=== PATIENT | male | born 1965 | race African-American/Black ===

== ENCOUNTER 2023-02-23 07:36 | Emergency (ER) | payer OTHER, SELFPAY ==
--- NOTE | ~2023-02-23 | US_ITS ---
EXAMINATION: US ABDOMEN LIMITED CLINICAL INFORMATION: Question cholecystitis. Right upper corner and pain. COMPARISON: CT abdomen and pelvis 05/28/2019. TECHNIQUE: Real-time imaging of the gallbladder. FINDINGS: Cholelithiasis. No sonographic evidence of acute cholecystitis. No gallbladder wall thickening or pericholecystic fluid. Negative sonographic Gaviria sign. The common bile duct is normal in caliber at 0.3 cm. US/US abdomen limited IMPRESSION: Cholelithiasis without evidence of acute cholecystitis.
--- NOTE | ~2023-02-23 | XR_ITS ---
EXAMINATION: XR CHEST CLINICAL INFORMATION: Cough COMPARISON: 06/27/2019, CT 06/28/2019 TECHNIQUE: Frontal view of the chest was obtained. FINDINGS: No acute finding. Pleural thickening at the lung bases bilaterally is likely fatty change when previous CT is reviewed. There is no infiltrate. There is no effusion. The hilar regions do not appear pathologically enlarged The cardiac silhouette is within normal limits. XR/XR chest 1V IMPRESSION: No acute finding.
[2023-02-23 07:45] VITALS: BP 175/108; PULSE 98; RESP 19; TEMP 37.2; O2SAT 98; BMI 28.3
--- NOTE | 2023-02-23 08:12 | ED.GENADULT ---
HPI - General Adult General Chief complaint: General Medical Stated complaint: Diff breathing/Cough Time Seen by Provider: 02/23/23 08:22 Source: patient Mode of arrival: ambulatory Limitations: no limitations History of Present Illness HPI narrative: Patient presented with cough or congestion he has history of COPD, symptoms have been ongoing for couple of days denies any fever vomiting. He is also complaining of some abdominal pain is scheduled to have a cholecystectomy on Friday. Also he states that he is having some abdominal pain. Onset (ago): day(s) (2) Radiation: non-radiation Severity: moderate Relieving factors: none Exacerbating factors: none Related Data Previous Rx's Medication Instructions Recorded ondansetron HCl 4 mg tablet 4 mg PO Q8H PRN nausea 4 days #14 02/23/23 tabs oxycodone 5 mg capsule 5 mg PO Q8H PRN pain #12 caps 02/23/23 Allergies Allergy/AdvReac Type Severity Reaction Status Date / Time No Known Allergies Allergy Verified 02/23/23 07:45 [No Known Allergies*] Review of Systems Constitutional: Constitutional: Reports no additional constitutional complaints ENT: Reports system reviewed and no additional complaints, except as documented Cardiovascular: Cardiovascular: Reports no additional cardiovascular complaints [facility] Past Medical History Attestation statement: The following information was validated with the patient. [facility] Narrative: COPD, gallstones Social History Social History Smoked in Last 30 Days: No Use of substances other than those prescribed or required for medical reasons: No Advance Directives: No Advance Directives Information Provided: Yes Physical Exam ED Vital Signs: Vital Signs - 24 hr 02/23/23 07:45 02/23/23 08:26 02/23/23 11:17 Temperature 99 F 98.9 F Pulse Rate 98 89 83 Respiratory Rate 19 18 16 Blood Pressure 175/108 H 136/91 H 159/97 H Pulse Oximetry 98 96 97 Oxygen Delivery Method Room Air Room Air Room Air BMI result Body Mass Index 28.3 Const General: cooperative Nutritional Appearance: average body habitus Orientation/consciousness: patient oriented x3 Limitations: no limitations HENMT Head: Yes normal to inspection Ears: hearing grossly normal bilaterally General nose exam: Normal external nose present Face and sinus: Yes normal facial exam Mouth: Normal oral and palatal mucosa present Throat: Yes posterior oropharynx normal Neck Neck: Yes normal visual inspection and Yes full ROM Resp Effort & Inspection: normal respiratory effort and able to speak in complete sentences Auscultation: rhonchi Cardio Jugular venous distension: no JVD Rate: regular rate Rhythm: regular rhythm GI Inspection: Yes normal to inspection Palpation (GI): Soft to palpation, not firm and nontender Skin General skin exam: no rashes or lesions noted and elasticity normal Lesions: no lesions Neuro General: patient oriented x3 Medications Administered Discontinued Medications Generic Name Dose Route Start Last Admin Trade Name Piyush PRN Reason Stop Dose Admin Oxycodone HCl 5 mg 02/23/23 08:16 02/23/23 08:35 Oxycodone Hcl Immed Release 5 Mg Tablet PO 02/23/23 08:17 5 mg ONCE ONE Administration Oxycodone HCl 5 mg 02/23/23 08:22 02/23/23 08:35 Oxycodone Hcl Immed Release 5 Mg Tablet PO 02/23/23 08:23 Not Given ONCE ONE Medical Decision Making Medical Decision Making [facility] Narrative: Patient presented with cough congestion will obtain COVID test chest x-ray labs and reassessed. He also has history of gallstones and scheduled for cholecystectomy on Friday. Will check LFT lipase white As 12:42 is feeling much better, ultrasound showed gallstone but no cholecystitis, labs are within normal limits chest x-ray is normal at this point I think can be safely discharged home. Differential Diagnosis Differential Diagnoses: The differential diagnosis associated with the presentation includes Pneumonia/COPD exacerbation Admission/Observation Consideration of admission/observation: Escalation of care including admission/observation considered Lab Data [facility] Lab Attestation statement: I reviewed the patient's lab results. 02/23/23 08:33 02/23/23 08:33 Labs: Lab Results 02/23/23 Range/Units 08:33 WBC 10.2 (4.8-10.8) X10*3/uL RBC 4.27 L (4.60-5.80) X10*6/uL Hgb 13.6 L (14.0-18.0) g/dl Hct 41.3 L (42.0-52.0) % MCV 96.7 (80.0-98.0) fL MCH 31.9 (27.0-33.0) pg MCHC 32.9 (31.0-36.0) g/dl RDW 13.3 (11.0-16.0) % Plt Count 270 (160-400) X10*3/uL MPV 8.5 L (9.4-12.4) fL Immature Gran % (Auto) 0.3 (0.0-0.4) % Neut % (Auto) 74.7 H (45-73) % Lymph % (Auto) 15.2 L (20-40) % Angelina % (Auto) 9.3 (2-11) % Eos % (Auto) 0.2 (0-4) % Baso % (Auto) 0.3 (0-2) % Lymph # (Auto) 1.6 (1.2-4.9) X10*3/uL Angelina # (Auto) 1.0 (0.1-1.2) X10*3/uL Eos # (Auto) 0.0 (0.0-0.4) X10*3/uL Baso # (Auto) 0.0 (0.0-0.2) X10*3/uL Abs Immat Gran (auto) 0.03 (0.00-0.03) X10*3/uL Absolute Neuts (auto) 7.6 (2.0-8.3) x10*3/uL Absolute Nucleated RBC 0.000 (0.0-0.012) X10*3/uL Nucleated RBC % (auto) 0.0 (0.0-0.2) /100WBC Sodium 142 (135-145) mmol/L Potassium 3.7 (3.3-5.1) mmol/L Chloride 108 (96-108) mmol/L Carbon Dioxide 23 (22-29) mmol/L Anion Gap 15 (12-20) BUN 13 (9-16) mg/dL Creatinine 1.15 (0.5-1.4) mg/dL Estim Creat Clear Calc 66.2 Estimated GFR > 60 Random Glucose 87 (60-115) mg/dL Calcium 10.3 H (8.4-10.2) mg/dL Total Bilirubin 0.4 (0.0-1.0) mg/dL AST 21 (5-37) U/L ALT 21 (0-40) U/L Alkaline Phosphatase 78 (39-117) U/L Total Protein 7.5 (6.5-8.0) g/dL Albumin 4.2 (3.5-5.0) g/dL Lipase 16 (8-78) U/L Influenza Type A (PCR) NEGATIVE (Negative) Influenza Type B (PCR) NEGATIVE (Negative) RSV RNA Qual (PCR) NEGATIVE (Negative) SARS-CoV-2 RNA (RT-PCR) NEGATIVE (Negative) Independent Interpretation I performed an independent interpretation of an: Ultrasound Interpretation: bormal cxr AND NORMAL US Radiology Impression Discussion of test interpretation with radiology: I have reviewed the radiologist's reading. Radiologist Impression: Question cholecystitis. Right upper corner and pain. COMPARISON: CT abdomen and pelvis 05/28/2019. TECHNIQUE: Real-time imaging of the gallbladder. FINDINGS: Cholelithiasis. No sonographic evidence of acute cholecystitis. No gallbladder wall thickening or pericholecystic fluid. Negative sonographic Gaviria sign. The common bile duct is normal in caliber at 0.3 cm. US/US abdomen limited IMPRESSION: Cholelithiasis without evidence of acute cholecystitis. Dictated By: David Morrison MD Signed By: <Electronically signed by David Morrison MD in OV> 02/23/23 1224 DD/ 1102 Discharge Plan Discharge Clinical Impression: Gallstone, URI (upper respiratory infection) Patient Disposition: Home, Self-Care Instructions: Gallstones (ED), Upper Respiratory Infection (DC) Prescriptions: New oxycodone 5 mg capsule 5 mg PO Q8H PRN (Reason: pain) Qty: 12 0RF Rx Instructions: Partial Fill upon patient request. ondansetron HCl 4 mg tablet 4 mg PO Q8H PRN (Reason: nausea) 4 Days Qty: 14 0RF Referrals: Florida Murcia MD [Primary Care Provider] - 2 days
--- OUTSIDE RECORDS SUMMARY | 2023-02-23 08:19 | XMS_ITS | Continuity of Care Document ---
Author Name Unknown Organization [facility] Inpatient Psychiatry Address [address] [place] [address]- Care Team Providers Care Manager Msw Name Role Phone Justine CAIN, Shannon Primary Care Physician Encounter [facility] Date(s): 12/03/21 - 12/06/21 [facility] Inpatient Psychiatry [address] [place] [address]- Discharge Disposition: A-D/C Home Attending Physician: Adela LEE, Pacheco Bejarano Admitting Physician: Pacheco Chapman MD Referring Physician: Not on Staff, Referring MD Allergies, Adverse Reactions, Alerts No Known Allergies Immunizations Not Given Vaccine Date Status Refusal Reason pneumococcal 23-valent vaccine 05/08/18 Not Given Patient Refuses Medications albuterol 90 mcg/inh inhalation powder 2 puffs, Inhalation, Every 6 hours, PRN as needed, # 1 each, 0 Refills, Maintenance, 09/17/21 15:47:00 EDT, Powder, Partial fill upon patient request if the prescription is for a schedule II opioid drug. Start Date: 09/17/21 Status: Ordered Depakote ER 250 mg oral tablet, extended release 2 tablet = 500 mg, By Mouth, Daily at bedtime, # 60 tablet, 0 Refills, Maintenance, 09/17/21 15:40:00 EDT, ER Tablet, Partial fill upon patient request if the prescription is for a schedule II opioiddrug. Start Date: 09/17/21 Status: Ordered ZyPREXA 7.5 mg oral tablet 15 mg, 2, tablet, By Mouth, Daily at bedtime, # 60 tablet, Refills 0, Tot. Refills 0, Maintenance, 09/25/21 11:08:00 EDT, Route to Pharmacy Electronically, [facility]/pharmacy #[id number], Partial fill upon patient request if the prescription is for a schedule II... Start Date: 09/25/21 Status: Ordered Vital Signs Most recent to oldest [Reference Range]: 1 2 3 Height 165 cm (12/06/21 9:01 AM) 165 cm (12/05/21 7:53 PM) 165 cm (12/05/21 9:01 AM) Weight 77.27 kg (12/03/21 5:22 PM) 77.27 kg (12/03/21 9:28 AM) 77.27 kg (12/02/21 6:17 PM) Oxygen Saturation [94-100 %] 98 % (12/06/21 9:01 AM) 100 % (12/05/21 7:53 PM) 98 % (12/05/21 9: AM) Pulse Rate [55-90 bpm] 74 bpm (12/06/21 9:01 AM) 80 bpm (12/05/21 7:53 PM) 86 bpm (12/05/21 9:01 AM) Body Mass Index [18.5-24.99] 28.38 *H* (12/03/21:22 PM) 28.38 *H* (12/03/21 9:28 AM) 28.38 *H* (12/02/21 6:17 PM) Blood Pressure [90-138/55-84 mm Hg] 145/90mm Hg *H* (12/06/21 9:01 AM) 140/81mm Hg *H* (12/05/21 7:53 PM) 122/73mm Hg (12/05/21 9:01 AM) Respiratory Rate [16-30 br/min] 16 br/min (12/06/21 9:01 AM) 16 br/min (12/06/21 9:01 AM) 17 br/min (12/05/21 7:53 PM) Temperature [96.8-100.4 DegF] 97 DegF (12/06/21 9:01 AM) 98.1 DegF (12/05/21 7:53 PM) 97 DegF (12/05/21 9:01 AM) Mode of Delivery (Oxygen) Room air (12/06/21 9:01 AM) Room air (12/05/21 7:53 PM) Room air (12/05/21 9:01 AM) Blood pressure sites Arm, left (12/06/21 9:01 AM) Arm, right (12/05/21 7:53 PM) Arm, left (12/05/21 9:01 AM) Temperature Route Temporal (12/06/21 9:01 AM) Temporal (12/05/21 7:53 PM) Temporal (12/05/21 9:01 AM) Dry Weight 77.27 kg (12/03/21 5:22 PM) 77 kg (12/03/21 9:28 AM) 77 kg (12/02/21 6:17 PM) Social History Social History Type Response Smoking Status Never (less than 100 in lifetime);Former smoker, quit more than 30 days ago; Other: 5 cigs daily for 15 years.; entered on: 02/04/19 Sex Care Team Personnel Name: Shannon Fletcher NP Address: [address] [place] [id number]
--- OUTSIDE RECORDS SUMMARY | 2023-02-23 08:19 | XMS_ITS | Continuity of Care Document ---
Author Name Unknown Organization [facility] Inpatient Psychiatry Address [address] [place] [address]- Care Team Providers Care Telecom Engineer Name Role Phone Justine CAIN, Shannon Primary Care Physician [phone] Encounter [facility] Date(s): 09/17/21 - 09/25/21 [facility] Inpatient Psychiatry [address] [place] [address]- Discharge Disposition: A-D/C Home Attending Physician: Manuel Preciado MD Admitting Physician: Manuel Preciado MD Referring Physician: Not on Staff, Referring [...] II opioiddrug. Start Date: 09/17/21 Status: Ordered hydrOXYzine pamoate 50 mg oral capsule = 50 mg, By Mouth, 3 times a day, PRN Anxiety, # 90 capsule, 0 Refills, Acute 10/27/21 11:08:00 EDT, 09/25/21 11:07:00 EDT, Capsule, [facility]/pharmacy #[id number], Partial fill upon patient request if the prescription is for a schedule II opioid drug., 162, cm,... Start Date: 09/25/21 Stop Date: 10/27/21 Status: Ordered ZyPREXA 7.5 mg oral tablet 15 mg, 2, tablet, By Mouth, Daily at bedtime, # 60 tablet, Refills 0, Tot. Refills 0, Maintenance, 09/25/21 11:08:00 EDT, Route to Pharmacy Electronically, [facility]/pharmacy #[id number], Partial fill upon patient request if the prescription is for a schedule II... Start Date: 09/25/21 Status: Ordered Problem List Condition Effective Dates Status Health Status Inform ant Obese class I(Confirmed) Active Results Radiology Reports * Exam Date Time Procedure Performing Provider Status 09/18/21 2:10 PM Chest 2 Views Frontal and Lat Panda Wheeler (Verified) Notes: (Chest 2 Views Frontal and Lat) Reason For Exam: Cough RESULT: Chest 2 Views Frontal and Lat Chest 2 Views Frontal and Lat Reason: Cough; Clinical Question(s): Pneumonia COMPARISON: 06/21/2019 FINDINGS: LINES AND TUBES: None. LUNGS AND PLEURA: Clear lungs. Normal pulmonary vascularity. No pleural effusion. No pneumothorax. HEART, MEDIASTINUM AND VIGNESH: Heart is normal in size. Normal upper mediastinal and hilar contour. BONES AND SOFT TISSUES: No acute abnormality. IMPRESSION: No acute abnormality. WSN: [id number] Ordering Physician: Nba Mandujano Dictated By: Julio Patel MD Dictated Date/Time: 09/18/21 4:19 pm Reviewed By: Julio Patel MD Signed By: Julio Patel MD Signed Date/Time: 09/18/21 4:19 pm Transcribed By: DIDI Transcribed Date/Time: 09/18/21 4:18 pm Vital Signs Most recent to oldest [Reference Range]: 1 2 3 Height 162 cm (09/24/21 3:57 PM) 162 cm (09/24/21 11:58 AM) 162 cm (09/23/21 10:34 PM) Weight 82.3 kg (09/17/21 3:11 PM) Oxygen Saturation [94-100 %] 100 % (09/24/21 3:57 PM) 99 % (09/24/21 11:58 AM) 98 % (09/23/21 10:34 PM) Pulse Rate [55-90 bpm] 101 bpm *H* (09/24/21 3:57 PM) 82 bpm (09/24/21 11:58 AM) 72 bpm (09/23/21 10:34 PM) Body Mass Index [18.5-24.99] 31.36 *>HHI* (09/17/21 3:11 PM) Blood Pressure [90-138/55-84 mm Hg] 133/73mm Hg (09/24/21 3:57 PM) 119/83mm Hg (09/24/21 11:58 AM) 134/85mm Hg (09/23/21 10:34 PM) Respiratory Rate [16-30 br/min] 18 br/min (09/24/21 7:16 PM) 18 br/min (09/24/21 3:57 PM) 16 br/min (09/24/21 11:58 AM) Temperature [96.8-100.4 DegF] 96.4 DegF *L* (09/24/21 3:57 PM) 98.1 DegF (09/24/21 11:58 AM) 97.3 DegF (09/23/21 10:34 PM) Mode of Delivery (Oxygen) Room air (09/24/21 3:57 PM) Room air (09/24/21 11:58 AM) Room air (09/23/21 11:15 AM) Blood pressure sites Arm, left (09/24/21 3:57 PM) Arm, left (09/24/21 11:58 AM) Leg, left (09/23/21 11:15 AM) Temperature Route Temporal (09/24/21 3:57 PM) Temporal (09/24/21 11:58 AM) Tympanic (09/23/21 10:34 PM) Dry Weight 82.3 kg (09/17/21 3:11 PM) Weight Obtained Via Standing scale (09/17/21 3:11 PM) Dry Weight Obtained Via Standing scale (09/17/21 3:11 PM) Social History Social History Type Response Smoking Status Never (less than 100 in lifetime);Former smoker, quit more than 30 days ago; Other: 5 cigs daily for 15 years.; entered on: 02/04/19 Sex
--- OUTSIDE RECORDS SUMMARY | 2023-02-23 08:19 | XMS_ITS | Continuity of Care Document ---
Author Name Unknown Organization [facility] oenterology Address [address] [place] [address]- Care Team Providers Care Manager Game Name Role Phone Divina LEE, Florida Bejarano Primary Care Physician Encounter [facility] Date(s): 01/03/23 - 02/13/23 [facility] Gastroenterology [address] [place] [id number]- Attending Physician: Rajan CAIN, Charito Astorga Admitting Physician: Rajan CAIN, Charito Astorga Referring Physician: Justine CAIN, Shannon Allergies, Adverse Reactions, Alerts No Known Allergies Medications albuterol 90 mcg/inh inhalation powder 2 [...] Route to Pharmacy Electronically, [facility]/pharmacy #[id number], Partial fill upon patient request if the prescription is for a schedule II... Start Date: 09/25/21 Status: Ordered Social History Social History Type Response Smoking Status Never (less than 100 in lifetime);Former smoker, quit more than 30 days ago; Other: 5 cigs daily for 15 years.; entered on: 02/04/19 Sex Patient Care team information Care Team Personnel Name: Florida Murcia MD Position: Reference Physician Member Role: PCP Address: Address: [address] [place] [address] Name: Nadira Farmer RN Position: S RN Member Role: Primary Care Nurse Name: Pawan Patterson RN Position: S RN Member Role: Primary Care Nurse Care Team Related Persons Name: ALEM BRICE Name: GILBERT MAST Address: home [address] [address] Name: MILLICENT DURANT Name: JHON HATFIELD Address: home [address] [place] [address]
--- OUTSIDE RECORDS SUMMARY | 2023-02-23 08:19 | XMS_ITS | Continuity of Care Document ---
Author Name Unknown Organization [facility] oenterology Address [address] [place] [address]- Care Team Providers Care Scroll Shear Operator Name Role Phone Rich LEE, Bill Primary Care Physician [phone] Encounter [facility] Date(s): 06/30/20 - 07/30/20 [facility] Gastroenterology [address] [place] [address]- Allergies, Adverse Reactions, Alerts Substance Reaction Severity Status NKA Active Immunizations Not Given Vaccine Date Status Refusal Reason pneumococcal 23-valent vaccine 05/08/18 Not Given Patient Refuses Medications albuterol CFC free 90 mcg/inh inhalation aerosol INHALE 2 PUFFS BY MOUTH EVERY 6 HOURS NEEDED FOR SHORTNESS OF BREATH Start Date: 06/24/19 Status: Ordered Breo Ellipta 100 mcg-25 mcg/inh inhalation powder 1 puffs, Inhalation, Daily, # 30 each, 0 Refills, Maintenance, 06/02/20 9:41:00 EST, Powder, Partial fill upon patient request if the prescription is for a schedule II opioid drug. Start Date: 06/02/20 Status: Ordered Clenpiq oral solution See Instructions, Drink 160 mL the night before colonoscopy and then take the other 160 mL 6 hours before colonoscopy, # 1 each, 0 Refills, Maintenance, 06/30/20 10:55:00 EDT, [facility]/pharmacy #[id number], Partial fill upon patient request if the prescription i... Start Date: 06/30/20 Status: Ordered DermaCerin topical cream APPLY TO AFFECTED AREA TWICE A DAY Start Date: 06/24/19 Status: Ordered divalproex sodium 500 mg oral tablet, extended release 1 tablet = 500 mg, By Mouth, Daily, # 30 tablet, 0 Refills, Maintenance, 06/02/20 9:42:00 EST, ER Tablet, Partial fill upon patient request if the prescription is for a schedule II opioid drug. Start Date: 06/02/20 Status: Ordered gabapentin 300 mg oral capsule TAKE 1 CAPSULE BY MOUTH TWICE A DAY NEEDED FOR ANXIETY/RESTLESSNESS Start Date: 06/24/19 Status: Ordered lamotrigine 100 mg oral tablet 100 mg, 1, tablet, By Mouth, Daily, Refills 0, Maintenance, 06/02/20 9:42:00 EST, Partial fill uponpatient request if the prescription is for a schedule II opioid drug. Start Date: 06/02/20 Status: Ordered lamotrigine 25 mg oral tablet 25 mg, 1, tablet, By Mouth, Daily, # 30 tablet, Refills 0, Maintenance, 06/02/20 9:42:00 EST, Partial fill upon patient request if the prescription is for a schedule II opioid drug. Start Date: 06/02/20 Status: Ordered Melatonin Daily at bedtime, 0 Refills, Maintenance, 06/02/20 9:42:00 EST, Partial fill upon patient request if the prescription is for a schedule II opioid drug. Start Date: 06/02/20 Status: Ordered olanzapine 5 mg oral tablet 5 mg, 1, tablet, By Mouth, Daily, # 30 tablet, Refills 0, Maintenance, 06/02/20 9:43:00 EST, Partial fill upon patient request if the prescription is for a schedule II opioid drug. Start Date: 06/02/20 Status: Ordered omeprazole 20 mg oral enteric coated capsule 1 capsule = 20 mg, By Mouth, Daily, # 30 capsule, 0 Refills, Maintenance, 06/02/20 9:43:00 EST, EC Capsule, Partial fill upon patient request if the prescription is for a schedule II opioid drug. Start Date: 06/02/20 Status: Ordered QUEtiapine 200 mg oral tablet 200 mg, 1, tablet, By Mouth, 3 times a day, Refills 0, Maintenance, 06/02/20 9:44:00 EST, Partial fill upon patient request if the prescription is for a schedule II opioid drug. Start Date: 06/02/20 Status: Ordered Social History Social History Type Response Smoking Status Never (less than 100 in lifetime);Former smoker, quit more than 30 days ago; Other: 5 cigs daily for 15 years.; entered on: 02/04/19 Sex
--- OUTSIDE RECORDS SUMMARY | 2023-02-23 08:19 | XMS_ITS | Continuity of Care Document ---
Author Name Unknown Organization [facility] Address [address] [place] [address]- Care Team Providers Care File Clerk Name Role Phone Lakhwinder Acosta DO Primary Care Physician En[place] [facility] Date(s): 04/15/19 - 04/25/19 [facility] [address] [place] [address]- [facility] Attending Physician: Savi Bowling Admitting Physician: Savi Bowling Referring Physician: Savi Bowling Allergies, Adverse Reactions, Alerts Substance Reaction Severity Status NKA Active Immunizations Not Given Vaccine Date Status Refusal Reason pneumococcal 23-valent vaccine 05/08/18 Not Given Patient Refuses Medications albuterol CFC free 90 mcg/inh inhalation aerosol 2, puffs, Inhalation, Every 6 hours, PRN, # 9 Gm, Refills 0, Maintenance, 05/07/18 14:42:49 EST, Aerosol, Compound Start Date: 05/07/18 Status: Ordered azithromycin 250 mg oral tablet 1 pack/packet, By Mouth, Once, # 6 tablet, 0 Refills, Soft Stop, 02/04/19 15:09:06 EST, Tablet Start Date: 02/04/19 Status: Ordered HydrOXYzine = 50 mg, By Mouth, 3 times a day, PRN as needed for anxiety, 0 Refills, Maintenance, 05/07/18 14:41:31 EST Start Date: 05/07/18 Status: Ordered melatonin 3 mg oral tablet 1 tablet = 3 mg, By Mouth, Daily at bedtime, 1-2 tablets at HS, 0 Refills, Maintenance, 05/07/18 14:41:57 EST Start Date: 05/07/18 Status: Ordered mirtazapine 7.5 mg oral tablet 1 tablet = 7.5 mg, By Mouth, Daily at bedtime, 0 Refills, Maintenance, 05/07/18 14:41:47 EST Start Date: 05/07/18 Status: Ordered Mucinex 600 mg oral tablet, extended release 1 tablet = 600 mg, By Mouth, Every 12 hours, for 30 days, # 60 tablet, 3 Refills, Acute 06/10/19 10:38:17 EDT, 02/10/19 10:38:17 EST, ER Tablet Start Date: 02/10/19 Stop Date: 06/10/19 Status: Ordered olanzapine 10 mg oral tablet 10 mg, 1, tablet, By Mouth, Daily at bedtime, Refills 0, Maintenance, 05/07/18 14:43:04 EST Start Date: 05/07/18 Status: Ordered omeprazole 20 mg oral delayed release tablet 1 tablet = 20 mg, By Mouth, Daily, 0 Refills, Maintenance, 05/07/18 14:43:25 EST Start Date: 05/07/18 Status: Ordered Social History Social History Type Response Smoking Status Never (less than 100 in lifetime);Former smoker, quit more than 30 days ago; Other: 5 cigs daily for 15 years.; entered on: 02/04/19 Sex
--- OUTSIDE RECORDS SUMMARY | 2023-02-23 08:19 | XMS_ITS | Continuity of Care Document ---
Author Name Unknown Organization [facility] Address [address] [place] [address]- Care Team Providers Care Aerial Photographer Name Role Phone Justine CAIN, Shannon Primary Care Physician Encounter [facility] Date(s): 08/09/20 - 10/08/[address] [address]- Attending Physician: Pilar Crespo MD Admitting Physician: Pilar Crespo MD Allergies, Adverse Reactions, Alerts Substance Reaction Severity [...] colonoscopy, # 1 each, 0 Refills, Maintenance, 09/04/20 11:24:00 EDT, [facility]/pharmacy #[id number], Partial fill upon patient request if the prescription i... Start Date: 09/04/20 Status: Ordered DermaCerin topical cream APPLY TO [...]
--- OUTSIDE RECORDS SUMMARY | 2023-02-23 08:19 | XMS_ITS | Continuity of Care Document ---
Author Name Unknown Organization [facility] Inpatient Psychiatry Address [address] [place] [address]- Care Team Providers Care Cnc Lathe Machinist Name Role Phone Justine CAIN, Shannon Primary Care Physician Encounter [facility] Date(s): 12/01/20 - 12/04/20 [facility] Inpatient Psychiatry [address] [place] [address]- Discharge Disposition: A-D/C Home Attending Physician: Manuel Preciado MD Admitting Physician: Caron LEE, Dionte Pagan Referring Physician: Not on Staff, Referring MD Allergies, Adverse Reactions, Alerts Substance Reaction Severity Status NKA Active Immunizations Not Given Vaccine Date Status Refusal Reason pneumococcal 23-valent vaccine 05/08/18 Not Given Patient Refuses Medications Ammonium Lactate 12% Topical 1 applicator, Topically, 2 times a day, 0 Refills, Maintenance, Cream Start Date: 12/04/20 Status: Ordered Breo Ellipta 100 mcg-25 mcg/inh inhalation powder 1 puffs, Inhalation, Daily, # 30 each, 0 Refills, Maintenance, 06/02/20 9:41:00 EST, Powder, Partial fill upon patient request if the prescription is for a schedule II opioid drug. Start Date: 06/02/20 Status: Ordered gabapentin 250 mg/5 mL oral solution 12 mL = 600 mg, By Mouth, 2 times a day, 0 Refills, Maintenance, 12/04/20 12:12:00 EDT, Liquid, Partial fill upon patient request if the prescription is for a schedule II opioid drug. Start Date: 12/04/20 Status: Ordered Gabapentin 50 mg/ml Liquid 600 mg, Liquid, By Mouth, 12/03/20 21:00:00 EDT Start Date: 12/03/20 Stop Date: 12/03/20 Status: Completed Gabapentin 50 mg/ml Liquid 600 mg, Liquid, By Mouth, 12/04/20 9:00:00 EDT Start Date: 12/04/20 Stop Date: 12/04/20 Status: Completed mirtazapine 15 mg oral tablet 1 tablet = 15 mg, By Mouth, Daily at bedtime, 0 Refills, Maintenance, 12/04/20 11:09:00 EDT, Tablet, Partial fill upon patient request if the prescription is for a schedule II opioid drug. Start Date: 12/04/20 Status: Ordered QUEtiapine 25 mg oral tablet 50 mg, 2, tablet, By Mouth, Daily at bedtime, Refills 0, Maintenance, 12/04/20 12:12:00 EDT, Partial fill upon patient request if the prescription is for a schedule II opioid drug. Start Date: 12/04/20 Status: Ordered SEROquel 100 mg oral tablet 100 mg, 1, tablet, By Mouth, 3 times a day, PRN, Refills 0, Maintenance, Other, 12/04/20 12:12:00 EDT, Partial fill upon patient request if the prescription is for a schedule II opioid drug. Start Date: 12/04/20 Status: Ordered Vital Signs Most recent to oldest [Reference Range]: 1 2 3 Height 165 cm (12/04/20 9:25 AM) 165 cm (12/03/20 5:39 PM) 165 cm (12/03/20 9:10 AM) Weight 81.3 kg (12/01/20 9:59 PM) Oxygen Saturation [94-100 %] 98 % (12/04/20 9:25 AM) 97 % (12/03/20 5:39 PM) 99 % (12/03/20 9:10 AM) Pulse Rate [55-90 bpm] 96 bpm *H* (12/04/20 9:25 AM) 103 bpm *H* (12/03/20 5:39 PM) 88 bpm (12/03/20 9:10 AM) Body Mass Index [18.5-24.99] 29.86 *H* (12/01/20 9:59 PM) Blood Pressure [90-138/55-84 mm Hg] 115/67mm Hg (12/04/20 9:25 AM) 112/86mm Hg (12/03/20 5:39 PM) 137/82mm Hg (12/03/20 9:10 AM) Respiratory Rate [16-30 br/min] 18 br/min (12/04/20 9:30 AM) 18 br/min (12/04/20 9:25 AM) 16 br/min (12/03/20 9:01 PM) Temperature [96.8-100.4 DegF] 96.9 DegF (12/04/20 9:25 AM) 97.1 DegF (12/03/20 5:39 PM) 97.3 DegF (12/03/20 9:10 AM) Mode of Delivery (Oxygen) Room air (12/04/20 9:25 AM) Room air (12/03/20 5:39 PM) Room air (12/03/20 9:10 AM) Blood pressure sites Arm, left (12/04/20 9:25 AM) Arm, left (12/03/20 5:39 PM) Arm, left (12/03/20 9:10 AM) Temperature Route Temporal (12/04/20 9:25 AM) Tympanic (12/03/20 5:39 PM) Temporal (12/03/20 9:10 AM) Dry Weight 81.3 kg (12/01/20 9:59 PM) Sensory deficits None (12/01/20 9:59 PM) Social History Social History Type Response Smoking Status Never (less than 100 in lifetime);Former smoker, quit more than 30 days ago; Other: 5 cigs daily for 15 years.; entered on: 02/04/19 Sex
--- OUTSIDE RECORDS SUMMARY | 2023-02-23 08:19 | XMS_ITS | Continuity of Care Document ---
Author Name Unknown Organization [facility] Address [address] [place] [address]- Care Team Providers Care Scientific Technical Writer Name Role Phone Bill Villanueva MD Primary Care Physician Encounter [facility] Date(s): 06/02/20 - 09/03/[address] [address]- Attending Physician: Pilar Crespo MD Admitting Physician: [...] each, 0 Refills, Maintenance, 06/30/20 10:55:00 EDT, [facility]/pharmacy #[id number], Partial fill upon patient request [...]
--- OUTSIDE RECORDS SUMMARY | 2023-02-23 08:19 | XMS_ITS | Continuity of Care Document ---
Author Name Unknown Organization [facility] oenterology Address [address] [place] [address]- Care Team Providers Care Financial Sales Associate Name Role Phone Divina LEE, [place] Bejarano Primary Care Physician Encounter [facility] Date(s): 01/14/23 - 02/13/23 [facility] Gastroenterology [address] [place] [address]- Attending Physician: Savi Bowling Admitting Physician: Savi Bowling Referring Physician: Savi Bowling Referring Physician: Micaela Reynoso Allergies, Adverse Reactions, Alerts No Known Allergies [...] 09/25/21 11:08:00 EDT, Route to Pharmacy Electronically, [facility]/pharmacy #[id number], Partial fill upon patient request if the [...] Reference Physician Member Role: PCP Address: Address: [address] [place] [id number] Name: Nadira Farmer RN Position: S RN Member Role: Primary Care Nurse Name: Pawan Patterson RN Position: S RN Member Role: Primary Care Nurse Care Team Related Persons Name: ALEM BRICE Name: GILBERT MAST Address: home [address] [address] Name: MILLICENT DURANT Name: JHON HATFIELD Address: home [address] [place] [address]
--- OUTSIDE RECORDS SUMMARY | 2023-02-23 08:20 | XMS_ITS | Continuity of Care Document ---
Author Name Unknown Organization [facility] oenterology Address [address] [place] [address]- Care Team Providers Care Help Desk Rep Name Role Phone Shannon Fletcher NP Primary Care Physician [phone] Encounter [facility] Date(s): 01/02/23 - 02/01/23 [facility] Gastroenterology [address] [place] [address]- Allergies, Adverse Reactions, Alerts No Known Allergies [...] 09/25/21 11:08:00 EDT, Route to Pharmacy Electronically, [facility]/pharmacy #[id number], Partial fill upon patient request if the prescription is for a schedule II... Start Date: 09/25/21 Status: Ordered Social History Social History Type Response Smoking Status Never (less than 100 in lifetime);Former smoker, quit more than 30 days ago; Other: 5 cigs daily for 15 years.; entered on: 02/04/19 Sex Patient Care team information Care Team Personnel Name: Shannon Flethcer NP Position: Reference Physician Member Role: PCP Address: Address: [address] [place] [address]- Name: Nadira Farmer RN Position: S RN Member Role: Primary Care Nurse Name: Pawan Patterson RN Position: S RN Member Role: Primary Care Nurse Care Team Related Persons Name: ALEM BRICE Name: GILBERT MAST Address: home [address] [address] Name: MILLICENT DURANT Name: JHON HATFIELD Address: home [address] [place] [address]
--- OUTSIDE RECORDS SUMMARY | 2023-02-23 08:20 | XMS_ITS | Continuity of Care Document ---
Author Name Unknown Organization [facility] oenterology Address [address] [place] [address]- Care Team Providers Care Project Construction Assistant Manager Name Role Phone Rich LEE, Bill Primary Care Physician Encounter [facility] Date(s): 06/02/20 - 07/02/20 [facility] Gastroenterology [address] [place] [address]- Attending Physician: Savi Bowling Admitting Physician: Savi Bowling Referring Physician: AdmtrSavi Allergies, Adverse Reactions, Alerts Substance Reaction Severity [...] each, 0 Refills, Maintenance, 06/30/20 10:55:00 EDT, [facility]/pharmacy #[id number], Partial fill upon patient request if [...]
--- OUTSIDE RECORDS SUMMARY | 2023-02-23 08:20 | XMS_ITS | Continuity of Care Document ---
Author Name Unknown Organization [facility] oenterology Address [address] [place] [address]- Care Team Providers Care Paint Line Operator Name Role Phone Bill Villanueva MD Primary Care Physician [phone] Encounter [facility] Date(s): 06/02/20 - 06/09/20 [facility] Gastroenterology [address] [place] [address]- Attending Physician: Rajan CAIN, Charito Astorga Admitting Physician: Charito Tolentino NP Referring Physician: Bill Villanueva MD Allergies, Adverse Reactions, Alerts Substance Reaction [...] opioid drug. Start Date: 06/02/20 Status: Ordered DermaCerin topical cream APPLY TO [...]
--- OUTSIDE RECORDS SUMMARY | 2023-02-23 08:20 | XMS_ITS | Continuity of Care Document ---
Author Name Unknown Organization [facility] Address [address] [place] [address]- Care Team Providers Care Orthodontic Treatment Coordinator Name Role Phone Lakhwinder Acosta DO Primary Care Physician [phone] Encounter [facility] Date(s): 02/10/19 - 05/15/19 [facility] [address] [place] [address]- [facility] Attending Physician: Lakhwinder Acosta DO Allergies, Adverse Reactions, Alerts Substance Reaction Severity [...]
[2023-02-23 08:26] VITALS: BP 136/91; PULSE 89; RESP 18; O2SAT 96
--- NOTE | 2023-02-23 08:30 | PC.NURSE ---
pt is alert and oriented, skin appropriate for ethnicity, respirations even and unlabored, ls clear, pt reports having a cough and feeling sob x1 week, pt also reports right upper abd pain and that he is scheduled for cholecystectomy on Friday but the pt ate burger and fri and now is having abd pain. abd soft but slightly tender with palpitations and bowel sounds in all 4 quadrants
[2023-02-23] MEDS: oxyCODONE HCl Immed Release 5 MG TABLET PO (08:35)
[2023-02-23 08:37] LABS: MANUAL DIFF FLAG NO
[2023-02-23 08:38] LABS: Basophils Percent Auto 0.3 % (0-2); Eosinophils Percent Auto 0.2 % (0-4); Hematocrit 41.3 % (42.0-52.0); Hemoglobin 13.6 g/dl (14.0-18.0); Imm Gran Abs Auto 0.03 X10*3/uL (0.00-0.03); Imm Gran Pct Auto 0.3 % (0.0-0.4); Lymphocytes Absolute Auto 1.6 X10*3/uL (1.2-4.9); Lymphocytes Percent Auto 15.2 % (20-40); Mean Corpuscular HGB Conc 32.9 g/dl (31.0-36.0); Mean Corpuscular Hemoglobin 31.9 pg (27.0-33.0); Mean Corpuscular Volume 96.7 fL (80.0-98.0); Mean Platelet Volume 8.5 fL (9.4-12.4); Monocytes Percent Auto 9.3 % (2-11); Neutrophils Absolute Auto 7.6 x10*3/uL (2.0-8.3); Neutrophils Percent Auto 74.7 % (45-73); Platelet Count 270 X10*3/uL (160-400); Red Blood Count 4.27 X10*6/uL (4.60-5.80); Red Cell Distribution Width 13.3 % (11.0-16.0); White Blood Count 10.2 X10*3/uL (4.8-10.8)
[2023-02-23 08:51] LABS: Alanine Aminotransferase 21 U/L (0-40); Albumin Level 4.2 g/dL (3.5-5.0); Alkaline Phosphatase 78 U/L (39-117); Anion Gap 15 (12-20); Aspartate Amino Transferase 21 U/L (5-37); Bilirubin Total 0.4 mg/dL (0.0-1.0); Blood Urea Nitrogen 13 mg/dL (9-16); Calcium 10.3 mg/dL (8.4-10.2); Carbon Dioxide 23 mmol/L (22-29); Chloride 108 mmol/L (96-108); Creatinine Clr Calc Pharmacy 66.2; Estimated Glomerular Filt Rate > 60; Glucose Random 87 mg/dL (60-115); Lipase 16 U/L (8-78); Potassium 3.7 mmol/L (3.3-5.1); Sodium 142 mmol/L (135-145); Total Protein 7.5 g/dL (6.5-8.0)
[2023-02-23 09:18] LABS: Influenza A PCR NEGATIVE (Negative); Influenza B PCR NEGATIVE (Negative); Resp Syncy Virus RNA Qual PCR NEGATIVE (Negative); SARS COV2 PCR INHOUSE NEGATIVE (Negative)
--- NOTE | 2023-02-23 09:38 | PC.NURSE ---
pt reports not feeling any better pain at 8/10 and now having nausea
[2023-02-23 11:17] VITALS: BP 159/97; PULSE 83; RESP 16; TEMP 37.2; O2SAT 97
--- NOTE | 2023-02-23 11:18 | PC.NURSE ---
Assumed care of patient at 1100, patient resting on stretcher, reporting 10/10 abdominal pain. Ultrasound complete, patient requesting pain medication at this time. MD noel
== END 2023-02-23 12:47 | disposition home or self-care (01) ==
PROVIDERS: Emergency Provider Emergency Medicine; PCP Family Medicine
DX: R05.9 Cough, unspecified (principal); K85.10 Biliary acute pancreatitis without necrosis or infection; J06.9 Acute upper respiratory infection, unspecified; R10.11 Right upper quadrant pain; K80.20 Calculus of gallbladder without cholecystitis without obstruction; Z20.822 Contact with and (suspected) exposure to COVID-19; Z20.828 Contact with and (suspected) exposure to other viral communicable diseases
CPT/HCPCS: 0241U; 36415; 71045; 76705; 80053; 83690; 85025; 99284

== ENCOUNTER 2023-05-07 21:30 | Inpatient (IN) | payer OTHER, SELFPAY ==
--- NOTE | ~2023-05-07 | XR_ITS ---
EXAMINATION: XR CHEST CLINICAL INFORMATION: Cough. COMPARISON: None available. TECHNIQUE: 2 views of the chest were obtained. FINDINGS: No significant abnormality is noted involving the heart, lungs, mediastinum, bony thorax or soft tissues. XR/XR chest 2V IMPRESSION: Unremarkable chest examination.
--- NOTE | ~2023-05-07 | CT_ITS ---
EXAMINATION: CT CHEST WITHOUT CONTRAST CLINICAL INFORMATION: Persistent cough COMPARISON: CT scan of chest on 06/28/2019 TECHNIQUE: Multidetector volumetric CT imaging of the chest was done. Axial MIP volume rendering provided. Sagittal and coronal reformatted images were obtained. This CT examination was performed using dose optimization techniques as appropriate, variously including the following: *Automated exposure control *Adjustment of mA and/or kV according to patient size (this includes techniques or standardized protocols for targeted exams where dose is matched to indication/reason for exam; i.e. extremities or head) *Use of iterative reconstruction technique DLP: 304.18 mGy-cm FINDINGS: LUNGS: Persistent Coronal curved platelike atelectasis is seen in the left lingular lobe. -Nodule #1 (Series 6, image 140): 2.9 mm solid nodule, lateral pleural border of right upper lobe apical segment, previously 2.9 mm. -Nodule #2 (Series 6, image 186): 4.5 mm solid nodule, superior border of right middle lobe lateral segment attached to the right minor fissure, previously 5 mm. PLEURA: No pleural effusion or pneumothorax is seen. PERICARDIUM: No pericardial effusion is seen. MEDIASTINUM AND VIGNESH: Inadequate evaluation of the mediastinal and hilar lymph nodes due to absence of IV contrast filling the surrounding blood vessels. TRACHEOBRONCHIAL TREE: Trachea and bilateral mainstem bronchi are patent. THORACIC AORTA: The thoracic aorta is normal in size and smooth in outline. CORONARY ARTERY CALCIFICATIONS: None PULMONARY ARTERIES: The main pulmonary arteries appear to be normal in size. CHEST WALL AND LOWER NECK: The subcutaneous and muscular chest wall are intact with no focal lesion. No abnormal mass lesion could be seen in the visualized lower neck. BONES: No fracture or dislocation. No focal bone lesion diagnostic of metastatic disease could be seen in the thorax. VISUALIZED UPPER ABDOMEN: Bilateral adrenal glands are not enlarged. A small hiatus hernia is present. There is hepatic steatosis, mean attenuation of 21.8 Hounsfield units, compared to splenic attenuation of 41.0 Hounsfield units. Surgical clips are seen in the gallbladder fossa. Posterior superior left renal cortical simple cyst is seen measuring 5.2 cm in diameter, mean attenuation of 0 Hounsfield unit, for which no follow up imaging is recommended. CT/CT chest wo IV con IMPRESSION: 1. Persistent Coronal curved platelike atelectasis is seen in the left lingular lobe. 2. Unchanged right upper lobe lateral juxtapleural micronodule and right middle lobe juxtapleural minor fissure intrapulmonary lymph node. 3. Interval development of Hepatic steatosis. 4. Unchanged Small hiatus hernia. 5. Interval performance of cholecystectomy. 6. Unchanged Posterior superior left renal cortical simple cyst, for which no follow up imaging is recommended. According to the UPDATED 2017 Fleischner Society recommendations, the advised follow-up imaging for solid nodules <6 mm in the middle/lower lobes is no routine follow up. Fleischner guidelines were followed.
[2023-05-07 21:36] VITALS: BP 137/92; PULSE 125; TEMP 37.1; O2SAT 94
[2023-05-07 22:01] VITALS: BP 137/92; BP 184/112; PULSE 125; PULSE 136; RESP 18; TEMP 37.1; O2SAT 94; O2SAT 97; BMI 45.2
--- OUTSIDE RECORDS SUMMARY | 2023-05-07 22:27 | XMS_ITS | Patient Health Record ---
Author Name Unknown Organization [facility] Address [address] [place], [place] [id number] Care Team Providers Care Wood Caulker Name Role Phone Zahida Orona Primary Care Provider [phone] REASON FOR REFERRAL No Information MEDICATIONS Medication SIG (Take, Route, Fr equency, Duration) Notes Start Date End Date Status ferrous sulfate 325 mg 1 tab(s) orally qd Active Depakote ER 500 mg 2 tab(s) orally qhs Active Narcan 4 mg/0.1 mL intranasally once Active Vistaril pamoate 50 mg 1 cap(s) orally bid PRN Active gabapentin 300 mg 1 cap(s) orally bid PRN Active traZODone 50 mg 1 tab(s) orally qhs Active RisperDAL 1 mg 1 tab(s) orally 2 ti mes a day PRN Active SOCIAL HISTORY Sex Assigned At : Social History Observation Description Sex Assigned At Unknown PROBLEMS Problem Type ICD Code Onset Dates Problem Status W/U Status Risk SNOMED Code Notes Problem 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 DM cl ient Homeless Hospitalization History Reason Date(Month/Year) 2019 [facility] - [facility]
--- OUTSIDE RECORDS SUMMARY | 2023-05-07 22:27 | XMS_ITS | Continuity of Care Document ---
Author Name Unknown Organization [facility] Address [address] [place] [address]- Care Team Providers Care Automobile Glass Technician Name Role Phone Florida Murcia MD Primary Care Physician Encounter [facility] Date(s): 02/26/23 - 02/26/[address] [address]- Discharge Disposition: A-D/C Home Attending Physician: Bill Sim MD Admitting Physician: Bill Sim MD Referring Physician: Bill Sim MD Allergies, Adverse Reactions, Alerts No Known [...] II opioiddrug. Start Date: 09/17/21 Status: Ordered oxyCODONE 5 mg oral tablet 5 mg, 1, tablet, By Mouth, Every 6 hours, PRN, # 6 tablet, Refills 0, Tot. Refills 0, Acute 02/28/23 12:04:00 EST, as needed for pain, 02/26/23 12:04:00 EST, Route to Pharmacy Electronically, [facility]/pharmacy #[id number], Partial fill upon patient request if th... Start Date: 02/26/23 Stop Date: 02/28/23 Status: Ordered Oxycodone 5mg Oral Tablet (PACU ONLY) 5 mg, Tablet, By Mouth, Once, in PACU ONLY, PRN for Pain , Moderate, Routine, 02/26/23 11:28:00 EST Start Date: 02/26/23 Stop Date: 02/26/23 Status: Completed ZyPREXA 7.5 mg oral tablet 15 mg, 2, tablet, By Mouth, Daily at bedtime, # 60 tablet, Refills 0, Tot. Refills 0, Maintenance, 09/25/21 11:08:00 EDT, Route to Pharmacy Electronically, [facility]/pharmacy #[id number], Partial fill upon patient request if the prescription is for a schedule II... Start Date: 09/25/21 Status: Ordered Vital Signs Most recent to oldest [Reference Range]: 1 2 3 Height 165 cm (02/26/23 10:00 AM) Oxygen Saturation [94-100 %] 98 % (02/26/23 3:12 PM) 95 % (02/26/23 2:55 PM) 91 % *L* (02/26/23 2:48 PM) Pulse Rate [55-90 bpm] 67 bpm (02/26/23 10:00 AM) Blood Pressure [90-138/55-84 mm Hg] 132/82mm Hg (02/26/23 3:12 PM) 114/82mm Hg (02/26/23 2:55 PM) 101/77mm Hg (02/26/23 2:40 PM) Respiratory Rate [16-30 br/min] 18 br/min (02/26/23 3:45 PM) 18 br/min (02/26/23 3:13 PM) 23 br/min (02/26/23 3:12 PM) Temperature [96.8-100.4 DegF] 98.3 DegF (02/26/23 11:55 AM) 97.6 DegF (02/26/23 10:00 AM) Liters per Minute 1 L/min (02/26/23 2:48 PM) 1 L/min (02/26/23 2:19 PM) 2 L/min (02/26/23 2:11 PM) Mode of Delivery (Oxygen) Room air (02/26/23 3:07 PM) Nasal cannula (02/26/23 2:48 PM) Room air (02/26/23 2:34 PM) Blood pressure sites Arm, right (02/26/23 11:55 AM) Arm, left (02/26/23 10:00 AM) Temperature Route Temporal (02/26/23 11:55 AM) Temporal (02/26/23 10:00 AM) Dry Weight 90.2 kg (02/26/23 10:00 AM) Social History Social History Type Response Smoking Status Never (less than 100 in lifetime);Former smoker, quit more than 30 days ago; Other: 5 cigs daily for 15 years.; entered on: 02/04/19 Sex Note * Arnoldo Jimenez RN PERFORM Event Display: Discharge/Transfer Note Hospital Authored Date: [id number] Nursing Discharge Note Entered On: 02/26/2023 12:32 EST Performed On: 02/26/2023 12:31 EST by Jackeline Jimenez RN Nursing Discharge Note 2 Discharge Time : 02/26/2023 15:45 EST Jackeline Jimenez RN - 02/26/2023 16:04 EST Discharge Level of Care at Discharge : Home/Prison/Foster Care Patient Left Unit Via : Wheelchair Patient Accompanied Off Unit with : Responsible adult DC Instructions Provided & Signed by Pt : Yes Patient Understands D/C Instructions : Yes Patient Instructions Discharge Signed : Yes Did Pt have Specialty Bed or Wound Vac : No Jackeline Jimenez RN - 02/26/2023 12:31 EST * Jackeline Jimenez RN: PERFORM, MODIFY Event Display: Patient Education/Instruction Authored Date: [id number] Surgery Adult Discharge Instructions [address] [address] Name: MARCELINO DURANT : 1965?? Visit: 02/26/2023 09:54?? Current Date: 02/26/2023 12:32 ?? Account: [id number]?? Surgery Discharge Instructions We would like to thank you for allowing us to assist you with your healthcare needs. The following includes patient education materials and information regarding your injury/illness. Our entire staffstrives to provide an excellent experience for our patients and their families. PLEASE ENSURE YOU FOLLOW-UP PER THE INSTRUCTIONS BELOW! ?? YOUR OPINION IS IMPORTANT TO US! Please complete the survey you may receive by mail or email. Your feedback will be used to make improvements to the healthcare experiences of our patients and their families. Surveys are administered by [employer] ?? If further treatment with your primary care physician or another doctor is recommended, it is important for you to keep the appointment. Call your primary care physician or return to the Emergency Department immediately if your condition worsens, fails to improve, or new symptoms develop. If you need to find a doctor, you can call [facility] Link for a referral at [phone] or toll free at [phone] or log in to [email or web address] ?? [facility], in keeping with [facility] guidance, no longer requires face masks for staff, patientsor visitors in most situations. Similiar to time spent indoors at other locations, there is the chance that you were exposed to repiratory viruses during your time with us (such as flu or COVID-19). If you develop symptoms concerning for a viral respiratory infection, please seek testing (and treatment if indicated) from your medical provider or home test kit. ?? You can view and manage your care through the patient portal or by using a health care abdoul of your choosing. [employer] is a website that allows you to securely view your medical information including your hospital discharge summary, office visit summaries, medications and follow-up visits. You can also request appointments, renew medications, and request access to your medical information using a health care abdoul of your choosing, or just ask a question. You are entitled to know the individuals who participated in your treatment. This information is available within your medical record and will be provided upon your request. You can enroll at [email or web address] or register d uring your next office visit. You have been discharged from [facility], Patient Care Unit: Same Day Care??. If you have any questions regarding these instructions after you leave, please call us and we will be happy to assist you. [facility] Your Care Team Attending Physician Bill Sim MD?? Discharging Providers Bill Sim MD Reason for Admission [facility] Primary Care Provider Florida Murcia MD? Advance Directive Health Care Proxy on File No Patient refuses to discuss What to do next Instructions From Your Doctor ?? Orders?? Daystay Protocol, ??02/26/23 12:04:00 EST? Follow Dr. Sim's instruction sheet Scheduled Follow-Up Appointments 2022 10:00 AM EST ?? With: Chiquis LEE, Bill Fernandez Where: [address] [address]- Status: Pending Discharge Medications MARCELINO DURANT :1965 Visit Date:02/26/2023 Medications: Please continue your medications until treatment is completed or stopped by your provider. You may resume your daily prescription medications. Discuss any questions related to medications with your provider. What How Much When Instructions Next Dose New Oxycodone (oxyCODONE 5 mg oral tablet) 1 tab(s) Oral Every 6 hours as needed for as needed for pain Pickup at [facility]/pharmacy #[id number] Take only if pain unrelieved by Tylenol & Ibuprofen 9:15pm Unchanged Albuterol (albuterol 90 mcg/ inh inhalation powder) 2 puff(s) Inhalation Every 6 hours as needed for as needed Unchanged Divalproex Sodium (Depakote ER 250 mg oral tablet, extended release) 2 tab(s) Oral Daily at Bedtime Unchanged Olanzapine (ZyPREXA 7.5 mg oral tablet) 2 tab(s) Oral Daily at Bedtime Pharmacy Information [facility]/pharmacy #[id number]: [address], [place] [id number] [phone] Allergies (NKA means No Known Allergies) NKA Education Materials Below is the list of Educational Leaflet Providered with your Discharge Instructions. Valuables and Belongings I fully understand and agree that [facility] accepts no responsibility for all my personal property including clothing, toilet articles, radios, jewelry, dentures, hearing aids, rings, money, or any other property that is in my possession or is brought to me after admission. I understand certain valuables may be placed in a hospital safe for a short period of time. I understand that the hospital is not liable for loss or damage due to accident, fire, or other natural occurrence while said property is in the safe. I accept full responsibility for any personal property that I keep with me, and will not hold the hospital responsible in case of loss or disappearance. I acknowledge that i have been encouraged to send valuables and belongings home. ?? Review of Valuable and Belonging List: With patient Date for Pt to Sign Valuables/Belongings: 02/26/23 10:19:00 ?? Common Emergency Awareness Tips IS IT A STROKE? Act FAST and Check for these signs: FACE Does the face look uneven? ARM Does one arm drift down? SPEECH Does their speech sound strange? TIME Call at any sign of stroke ?? Heart Attack Signs Chest discomfort: Most heart attacks involve discomfort in the center of the chest and lasts more than a few minutes, or goes away and comes back. It can feel like uncomfortable pressure, squeezing, fullness or pain. Discomfort in upper body: Symptoms can include pain or discomfort in one or both arms, back, neck, jaw or stomach. Shortness of breath: With or without discomfort. Other signs: Breaking out in a cold sweat, nausea, or lightheaded. Remember, MINUTES DO MATTER. If you experience any of these heart attack warning signs, call to get immediate medical attention! ?? Smoking can increase your chances of developing chronic health problems and can cause harmful effects to other family members in your house. If you smoke, you are strongly encouraged to quit. Please call [facility] at [phone] or [phone]) or log in to [email or web address]-minded[facility] Borrow or [email or web address] for referrals to smoking cessation programs. ?? The National Suicide Prevention Hotline is available 14/10 if you or someone you know needs to find a reason to keep living. By calling 1-401-249-ActionX (9248) you'll be connected to a skilled, trained counselor at a crisis center in your area. SURGERY DISCHARGE INSTRUCTIONS SIGNATURE PAGE MARCELINO DURANT Location:[facility] Registration Date and Time:02/26/2023 09:54 EST Primary Care Physician: Florida Murcia MD, Attending Physician: Chiquis LEE, Bill Fernandez, I CARLEEN MARCELINO, have received the above patient education materials/instructions and have verbalized understanding. If ambulance or transport services are being used I further acknowledge being given a choice of service. ?? If you need to contact me, please call me at this number: . Patient/Clip On Sunglasses Assembler Name: Patient/Clip On Sunglasses Assembler Signature: Relationship to Patient: Witness Name/Signature: Date: * Jackeline Jimenez RN: PERFORM, SIGN, VERIFY Event Display: Patient Education Handout Authored Date: [id number] Patient Care team information Care Team Personnel Name: Florida Murcia MD Position: Reference Physician Member Role: PCP Address: Address: [address] [place] [place] [id number] Name: Nadira Farmer RN Position: S RN Member Role: Primary Care Nurse Name: Pawan Patterson RN Position: S RN Member Role: Primary Care Nurse Care Team Related Persons Name: ALEM BRICE Name: GILBERT MAST Address: home [address] [place] [address] Name: MILLICENT DURANT Name: JHON HATFIELD Address: home [address] [place] [address]
[2023-05-07 22:50] LABS: MANUAL DIFF FLAG NO
--- NOTE | 2023-05-07 22:52 | ED.GENADULT ---
HPI - General Adult General Chief complaint: Psychiatric Symptoms Stated complaint: Crisis Time Seen by Provider: 05/07/23 21:51 History of Present Illness HPI narrative: The patient is a 58-year-old male who is a . He lives on the campus of the [facility] in [place]. He was apparently at a bar in [place] this evening. Apparently an ambulance was called and he expressed suicidal ideation. He was brought to the hospital. Here the patient complains of respiratory symptoms including a cough that has been bothering him for about 3 weeks. He has not had a fever but he has had a nagging cough. Additionally he feels depressed. He says that his aunt recently and this has been very sad for him. He is hoping to relocate to [place] as he no longer has any family in this area. He says he does not really have any specific plan to kill himself but he said to me ?if I had a razor I would cut my wrist. Related Data Home Medications Medication Instructions Recorded Confirmed amlodipine 2.5 mg tablet 2.5 mg PO DAILY 05/08/23 05/08/23 cholecalciferol (vitamin D3) 50 50 mcg PO QAM 05/08/23 05/08/23 mcg (2,000 unit) capsule divalproex 500 mg tablet,extended 1,500 mg PO BEDTIME 05/08/23 05/08/23 release 24 hr gabapentin 300 mg capsule 300 mg PO DAILY 05/08/23 05/08/23 hydroxyzine pamoate 50 mg capsule 50 mg PO DAILY PRN Agitation 05/08/23 05/08/23 lorazepam 0.5 mg tablet 0.5 mg PO DAILY anxiety 05/08/23 05/08/23 olanzapine 20 mg tablet 20 mg PO BEDTIME 05/08/23 05/08/23 penicillin V potassium 500 mg 500 mg PO Q12H 05/08/23 05/08/23 tablet quetiapine 100 mg tablet 100 mg PO BEDTIME 05/08/23 05/08/23 Allergies Allergy/AdvReac Type Severity Reaction Status Date / Time No Known Allergies Allergy Verified 02/23/23 07:45 [No Known Allergies*] Review of Systems Review of Systems: Yes all other systems are reviewed and are negative [facility] Social History Social History Advance Directives: No Advance Directives Information Provided: No Physical Exam ED Vital Signs: Vital Signs - 24 hr 05/07/23 21:36 05/07/23 22:01 Temperature 98.7 F 98.7 F Pulse Rate 125 H 125 H Respiratory Rate 18 Blood Pressure 137/92 H 137/92 H Pulse Oximetry 94 94 Oxygen Delivery Method Room Air Room Air BMI result Body Mass Index 45.2 Const Other: The patient is awake, alert, pleasant, cooperative. He does not appear in distress. No shortness of breath. HENMT Other: The face is symmetrical. ?Mucous membranes moist. Eyes Other: Pupils are round equal, conjunctivae are clear, extraocular movements intact Neck Other: No adenopathy, moving his neck easily Resp Other: No appreciated wheezes Effort & Inspection: normal respiratory effort Auscultation: clear to auscultation bilaterally Cardio Rate: regular rate Rhythm: regular rhythm Heart sounds: S1 normal heart sound present and S2 normal heart sound present GI Other: Abdomen is soft and nontender Skin Other: Skin is dry and unremarkable Neuro Other: Awake alert, normal mental status. Cranial nerves 2-12 grossly intact. Moving all 4 extremities normally. Gait is normal. Grossly neurologically intact. Extrem Other: No peripheral edema Psych Other: The patient has a normal mental status. He makes good eye contact. He describes feeling depressed and having suicidal thoughts and he also says that ears voices but he does not seem to be responding to internal stimuli. His affect is normal. Medications Administered Generic Name Dose Route Start Last Admin Trade Name Freq PRN Reason Stop Dose Admin Divalproex Sodium 1,500 mg 05/08/23 00:35 05/08/23 00:40 Divalproex Sodium Er 500 Mg Tab.Er.24h PO 1,500 mg BEDTIME ARACELI Administration Olanzapine 20 mg 05/08/23 00:30 05/08/23 00:41 Olanzapine 10 Mg Tablet PO 20 mg BEDTIME ARACELI Administration Quetiapine Fumarate 100 mg 05/08/23 00:30 05/08/23 00:40 Quetiapine Fumarate 100 Mg Tablet PO 100 mg BEDTIME ARACELI Administration Medical Decision Making Medical Decision Making [facility] Narrative: The patient is here for behavioral health reasons and he was also complaining of respiratory symptoms. He is apparently currently being treated with penicillin for strep throat. Medically the patient is testing very well. Chest x-ray is clear. His lungs sound clear. I do not think he has any acute medical process that would affect any behavioral health disposition. He is medically clear for evaluation by the care team and disposition by the care team. The patient was seen by our care team and judged to be appropriate for inpatient hospitalization. The patient apparently reported having access to a gun. The Care team counselor has therefore recommended that the patient be placed on a section 12 while a bed search is underway. Lab Data 05/07/23 22:46 05/07/23 22:46 Labs: Lab Results 05/07/23 05/07/23 05/07/23 Range/Units 22:46 22:47 22:47 WBC 12.4 H (4.8-10.8) X10*3/uL RBC 4.50 L (4.60-5.80) X10*6/uL Hgb 14.6 (14.0-18.0) g/dl Hct 45.1 (42.0-52.0) % MCV 100.2 H (80.0-98.0) fL MCH 32.4 (27.0-33.0) pg MCHC 32.4 (31.0-36.0) g/dl RDW 12.4 (11.0-16.0) % Plt Count 368 D (160-400) X10*3/uL MPV 8.7 L (9.4-12.4) fL Immature Gran % (Auto) 0.8 H (0.0-0.4) % Neut % (Auto) 85.2 H (45-73) % Lymph % (Auto) 8.9 L (20-40) % [place] % (Auto) 4.9 (2-11) % Eos % (Auto) 0.0 (0-4) % Baso % (Auto) 0.2 (0-2) % Lymph # (Auto) 1.1 L (1.2-4.9) X10*3/uL [place] # (Auto) 0.6 (0.1-1.2) X10*3/uL Eos # (Auto) 0.0 (0.0-0.4) X10*3/uL Baso # (Auto) 0.0 (0.0-0.2) X10*3/uL Abs Immat Gran (auto) 0.10 H (0.00-0.03) X10*3/uL Absolute Neuts (auto) 10.5 H (2.0-8.3) x10*3/uL Absolute Nucleated RBC 0.000 (0.0-0.012) X10*3/uL Nucleated RBC % (auto) 0.0 (0.0-0.2) /100WBC Sodium 139 (135-145) mmol/L Potassium 4.6 (3.3-5.1) mmol/L Chloride 105 (96-108) mmol/L Carbon Dioxide 21 L (22-29) mmol/L Anion Gap 18 (12-20) BUN 17 H (9-16) mg/dL Creatinine 1.39 (0.5-1.4) mg/dL Estim Creat Clear Calc 71.2 Estimated GFR 52 Random Glucose 102 (60-115) mg/dL Calcium 10.6 H (8.4-10.2) mg/dL Total Bilirubin 0.5 (0.0-1.0) mg/dL AST 32 (5-37) U/L ALT 27 (0-40) U/L Alkaline Phosphatase 85 (39-117) U/L C-Reactive Protein 0.79 H (< or = 0.50) mg/dL Total Protein 8.6 H (6.5-8.0) g/dL Albumin 4.4 (3.5-5.0) g/dL Urine Color Yellow Cancelled Urine Appearance Cloudy Urine pH (5.0-9.0) Ur Specific [place] (1.005-1.025) Urine Protein (Neg-Trace) mg/dL Urine Glucose (UA) (Negative) mg/dL Urine Ketones (Negative) mg/dL Urine Blood (Negative) Urine Nitrite (Negative) Ur Leukocyte Esterase (Negative) Urine RBC (0-2) /HPF Urine WBC (0-5) /HPF Urine WBC Clumps Ur Squamous Epith Cells (0-2) /HPF Ur Transition Epith Cell Ur Renal Epithelial Cell Calcium Oxalate Crystal Leucine Crystals Cystine Crystals Tyrosine Crystals Other Crystals Urine Bacteria (None Seen) Urine Parasites Bilirubin Casts Epithelial Casts Fatty Casts Hyaline Casts (0-2) /LPF Granular Casts Waxy Casts Broad Casts RBC Casts WBC Casts Other Casts Urine Trichomonas Urine Yeast Salicylates < 5.0 L (15-30) mg/dL Urine Opiates Screen (Not Detect) Urine Fentanyl Screen (Not Detect) Acetaminophen < 3 (<30) mcg/mL Ur Barbiturates Screen (Not Detect) Valproic Acid < 12.5 L (50.0-100.0) mcg/mL Ur Phencyclidine Scrn (Not Detect) Ur Amphetamines Screen (Not Detect) U Benzodiazepines Scrn (Not Detect) Urine Cocaine Screen (Not Detect) U Marijuana (THC) Screen (Not Detect) Ethyl Alcohol < 10 mg/dL COVID-19 (GABBY) (Negative) COVID-19 Clin Com Influenza Type A (MILKA) (Negative) Influenza Type B (MILKA) (Negative) Influenza A & B Note 05/07/23 05/07/23 05/07/23 Range/Units 22:47 22:47 22:47 WBC (4.8-10.8) X10*3/uL RBC (4.60-5.80) X10*6/uL Hgb (14.0-18.0) g/dl Hct (42.0-52.0) % MCV (80.0-98.0) fL MCH (27.0-33.0) pg MCHC (31.0-36.0) g/dl RDW (11.0-16.0) % Plt Count (160-400) X10*3/uL MPV (9.4-12.4) fL Immature Gran % (Auto) (0.0-0.4) % Neut % (Auto) (45-73) % Lymph % (Auto) (20-40) % [place] % (Auto) (2-11) % Eos % (Auto) (0-4) % Baso % (Auto) (0-2) % Lymph # (Auto) (1.2-4.9) X10*3/uL [place] # (Auto) (0.1-1.2) X10*3/uL Eos # (Auto) (0.0-0.4) X10*3/uL Baso # (Auto) (0.0-0.2) X10*3/uL Abs Immat Gran (auto) (0.00-0.03) X10*3/uL Absolute Neuts (auto) (2.0-8.3) x10*3/uL Absolute Nucleated RBC (0.0-0.012) X10*3/uL Nucleated RBC % (auto) (0.0-0.2) /100WBC Sodium (135-145) mmol/L Potassium (3.3-5.1) mmol/L Chloride (96-108) mmol/L Carbon Dioxide (22-29) mmol/L Anion Gap (12-20) BUN (9-16) mg/dL Creatinine (0.5-1.4) mg/dL Estim Creat Clear Calc Estimated GFR Random Glucose (60-115) mg/dL Calcium (8.4-10.2) mg/dL Total Bilirubin (0.0-1.0) mg/dL AST (5-37) U/L ALT (0-40) U/L Alkaline Phosphatase (39-117) U/L C-Reactive Protein (< or = 0.50) mg/dL Total Protein (6.5-8.0) g/dL Albumin (3.5-5.0) g/dL Urine Color Urine Appearance Cancelled Urine pH 5.5 Cancelled (5.0-9.0) Ur Specific [place] 1.015 Cancelled (1.005-1.025) Urine Protein 100 (2+) H (Neg-Trace) mg/dL Urine Glucose (UA) (Negative) mg/dL Urine Ketones (Negative) mg/dL Urine Blood (Negative) Urine Nitrite (Negative) Ur Leukocyte Esterase (Negative) Urine RBC (0-2) /HPF Urine WBC (0-5) /HPF Urine WBC Clumps Ur Squamous Epith Cells (0-2) /HPF Ur Transition Epith Cell Ur Renal Epithelial Cell Calcium Oxalate Crystal Leucine Crystals Cystine Crystals Tyrosine Crystals Other Crystals Urine Bacteria (None Seen) Urine Parasites Bilirubin Casts Epithelial Casts Fatty Casts Hyaline Casts (0-2) /LPF Granular Casts Waxy Casts Broad Casts RBC Casts WBC Casts Other Casts Urine Trichomonas Urine Yeast Salicylates (15-30) mg/dL Urine Opiates Screen (Not Detect) Urine Fentanyl Screen (Not Detect) Acetaminophen (<30) mcg/mL Ur Barbiturates Screen (Not Detect) Valproic Acid (50.0-100.0) mcg/mL Ur Phencyclidine Scrn (Not Detect) Ur Amphetamines Screen (Not Detect) U Benzodiazepines Scrn (Not Detect) Urine Cocaine Screen (Not Detect) U Marijuana (THC) Screen (Not Detect) Ethyl Alcohol mg/dL COVID-19 (GABBY) (Negative) COVID-19 Clin Com Influenza Type A (MILKA) (Negative) Influenza Type B (MILKA) (Negative) Influenza A & B Note 05/07/23 05/07/23 05/07/23 Range/Units 22:47 22:47 22:47 WBC (4.8-10.8) X10*3/uL RBC (4.60-5.80) X10*6/uL Hgb (14.0-18.0) g/dl Hct (42.0-52.0) % MCV (80.0-98.0) fL MCH (27.0-33.0) pg MCHC (31.0-36.0) g/dl RDW (11.0-16.0) % Plt Count (160-400) X10*3/uL MPV (9.4-12.4) fL Immature Gran % (Auto) (0.0-0.4) % Neut % (Auto) (45-73) % Lymph % (Auto) (20-40) % [place] % (Auto) (2-11) % Eos % (Auto) (0-4) % Baso % (Auto) (0-2) % Lymph # (Auto) (1.2-4.9) X10*3/uL [place] # (Auto) (0.1-1.2) X10*3/uL Eos # (Auto) (0.0-0.4) X10*3/uL Baso # (Auto) (0.0-0.2) X10*3/uL Abs Immat Gran (auto) (0.00-0.03) X10*3/uL Absolute Neuts (auto) (2.0-8.3) x10*3/uL Absolute Nucleated RBC (0.0-0.012) X10*3/uL Nucleated RBC % (auto) (0.0-0.2) /100WBC Sodium (135-145) mmol/L Potassium (3.3-5.1) mmol/L Chloride (96-108) mmol/L Carbon Dioxide (22-29) mmol/L Anion Gap (12-20) BUN (9-16) mg/dL Creatinine (0.5-1.4) mg/dL Estim Creat Clear Calc Estimated GFR Random Glucose (60-115) mg/dL Calcium (8.4-10.2) mg/dL Total Bilirubin (0.0-1.0) mg/dL AST (5-37) U/L ALT (0-40) U/L Alkaline Phosphatase (39-117) U/L C-Reactive Protein (< or = 0.50) mg/dL Total Protein (6.5-8.0) g/dL Albumin (3.5-5.0) g/dL Urine Color Urine Appearance Urine pH (5.0-9.0) Ur Specific [place] (1.005-1.025) Urine Protein Cancelled (Neg-Trace) mg/dL Urine Glucose (UA) Negative Cancelled (Negative) mg/dL Urine Ketones Trace Cancelled (Negative) mg/dL Urine Blood Small (1+) H (Negative) Urine Nitrite (Negative) Ur Leukocyte Esterase (Negative) Urine RBC (0-2) /HPF Urine WBC (0-5) /HPF Urine WBC Clumps Ur Squamous Epith Cells (0-2) /HPF Ur Transition Epith Cell Ur Renal Epithelial Cell Calcium Oxalate Crystal Leucine Crystals Cystine Crystals Tyrosine Crystals Other Crystals Urine Bacteria (None Seen) Urine Parasites Bilirubin Casts Epithelial Casts Fatty Casts Hyaline Casts (0-2) /LPF Granular Casts Waxy Casts Broad Casts RBC Casts WBC Casts Other Casts Urine Trichomonas Urine Yeast Salicylates (15-30) mg/dL Urine Opiates Screen (Not Detect) Urine Fentanyl Screen (Not Detect) Acetaminophen (<30) mcg/mL Ur Barbiturates Screen (Not Detect) Valproic Acid (50.0-100.0) mcg/mL Ur Phencyclidine Scrn (Not Detect) Ur Amphetamines Screen (Not Detect) U Benzodiazepines Scrn (Not Detect) Urine Cocaine Screen (Not Detect) U Marijuana (THC) Screen (Not Detect) Ethyl Alcohol mg/dL COVID-19 (GABBY) (Negative) COVID-19 Clin Com Influenza Type A (MILKA) (Negative) Influenza Type B (MILKA) (Negative) Influenza A & B Note 05/07/23 05/07/23 05/07/23 Range/Units 22:47 22:47 22:47 WBC (4.8-10.8) X10*3/uL RBC (4.60-5.80) X10*6/uL Hgb (14.0-18.0) g/dl Hct (42.0-52.0) % MCV (80.0-98.0) fL MCH (27.0-33.0) pg MCHC (31.0-36.0) g/dl RDW (11.0-16.0) % Plt Count (160-400) X10*3/uL MPV (9.4-12.4) fL Immature Gran % (Auto) (0.0-0.4) % Neut % (Auto) (45-73) % Lymph % (Auto) (20-40) % [place] % (Auto) (2-11) % Eos % (Auto) (0-4) % Baso % (Auto) (0-2) % Lymph # (Auto) (1.2-4.9) X10*3/uL [place] # (Auto) (0.1-1.2) X10*3/uL Eos # (Auto) (0.0-0.4) X10*3/uL Baso # (Auto) (0.0-0.2) X10*3/uL Abs Immat Gran (auto) (0.00-0.03) X10*3/uL Absolute Neuts (auto) (2.0-8.3) x10*3/uL Absolute Nucleated RBC (0.0-0.012) X10*3/uL Nucleated RBC % (auto) (0.0-0.2) /100WBC Sodium (135-145) mmol/L Potassium (3.3-5.1) mmol/L Chloride (96-108) mmol/L Carbon Dioxide (22-29) mmol/L Anion Gap (12-20) BUN (9-16) mg/dL Creatinine (0.5-1.4) mg/dL Estim Creat Clear Calc Estimated GFR Random Glucose (60-115) mg/dL Calcium (8.4-10.2) mg/dL Total Bilirubin (0.0-1.0) mg/dL AST (5-37) U/L ALT (0-40) U/L Alkaline Phosphatase (39-117) U/L C-Reactive Protein (< or = 0.50) mg/dL Total Protein (6.5-8.0) g/dL Albumin (3.5-5.0) g/dL Urine Color Urine Appearance Urine pH (5.0-9.0) Ur Specific [place] (1.005-1.025) Urine Protein (Neg-Trace) mg/dL Urine Glucose (UA) (Negative) mg/dL Urine Ketones (Negative) mg/dL Urine Blood Cancelled (Negative) Urine Nitrite Negative Cancelled (Negative) Ur Leukocyte Esterase Small (1+) H Cancelled (Negative) Urine RBC 3-5 H (0-2) /HPF Urine WBC (0-5) /HPF Urine WBC Clumps Ur Squamous Epith Cells (0-2) /HPF Ur Transition Epith Cell Ur Renal Epithelial Cell Calcium Oxalate Crystal Leucine Crystals Cystine Crystals Tyrosine Crystals Other Crystals Urine Bacteria (None Seen) Urine Parasites Bilirubin Casts Epithelial Casts Fatty Casts Hyaline Casts (0-2) /LPF Granular Casts Waxy Casts Broad Casts RBC Casts WBC Casts Other Casts Urine Trichomonas Urine Yeast Salicylates (15-30) mg/dL Urine Opiates Screen (Not Detect) Urine Fentanyl Screen (Not Detect) Acetaminophen (<30) mcg/mL Ur Barbiturates Screen (Not Detect) Valproic Acid (50.0-100.0) mcg/mL Ur Phencyclidine Scrn (Not Detect) Ur Amphetamines Screen (Not Detect) U Benzodiazepines Scrn (Not Detect) Urine Cocaine Screen (Not Detect) U Marijuana (THC) Screen (Not Detect) Ethyl Alcohol mg/dL COVID-19 (GABBY) (Negative) COVID-19 Clin Com Influenza Type A (MILKA) (Negative) Influenza Type B (MILKA) (Negative) Influenza A & B Note 05/07/23 05/07/23 05/07/23 Range/Units 22:47 22:47 22:47 WBC (4.8-10.8) X10*3/uL RBC (4.60-5.80) X10*6/uL Hgb (14.0-18.0) g/dl Hct (42.0-52.0) % MCV (80.0-98.0) fL MCH (27.0-33.0) pg MCHC (31.0-36.0) g/dl RDW (11.0-16.0) % Plt Count (160-400) X10*3/uL MPV (9.4-12.4) fL Immature Gran % (Auto) (0.0-0.4) % Neut % (Auto) (45-73) % Lymph % (Auto) (20-40) % [place] % (Auto) (2-11) % Eos % (Auto) (0-4) % Baso % (Auto) (0-2) % Lymph # (Auto) (1.2-4.9) X10*3/uL [place] # (Auto) (0.1-1.2) X10*3/uL Eos # (Auto) (0.0-0.4) X10*3/uL Baso # (Auto) (0.0-0.2) X10*3/uL Abs Immat Gran (auto) (0.00-0.03) X10*3/uL Absolute Neuts (auto) (2.0-8.3) x10*3/uL Absolute Nucleated RBC (0.0-0.012) X10*3/uL Nucleated RBC % (auto) (0.0-0.2) /100WBC Sodium (135-145) mmol/L Potassium (3.3-5.1) mmol/L Chloride (96-108) mmol/L Carbon Dioxide (22-29) mmol/L Anion Gap (12-20) BUN (9-16) mg/dL Creatinine (0.5-1.4) mg/dL Estim Creat Clear Calc Estimated GFR Random Glucose (60-115) mg/dL Calcium (8.4-10.2) mg/dL Total Bilirubin (0.0-1.0) mg/dL AST (5-37) U/L ALT (0-40) U/L Alkaline Phosphatase (39-117) U/L C-Reactive Protein (< or = 0.50) mg/dL Total Protein (6.5-8.0) g/dL Albumin (3.5-5.0) g/dL Urine Color Urine Appearance Urine pH (5.0-9.0) Ur Specific [place] (1.005-1.025) Urine Protein (Neg-Trace) mg/dL Urine Glucose (UA) (Negative) mg/dL Urine Ketones (Negative) mg/dL Urine Blood (Negative) Urine Nitrite (Negative) Ur Leukocyte Esterase (Negative) Urine RBC Cancelled (0-2) /HPF Urine WBC 21-50 H Cancelled (0-5) /HPF Urine WBC Clumps Cancelled Ur Squamous Epith Cells 11-20 Cancelled (0-2) /HPF Ur Transition Epith Cell Cancelled Ur Renal Epithelial Cell Cancelled Calcium Oxalate Crystal Cancelled Leucine Crystals Cancelled Cystine Crystals Cancelled Tyrosine Crystals Cancelled Other Crystals Cancelled Urine Bacteria None Seen (None Seen) Urine Parasites Bilirubin Casts Epithelial Casts Fatty Casts Hyaline Casts (0-2) /LPF Granular Casts Waxy Casts Broad Casts RBC Casts WBC Casts Other Casts Urine Trichomonas Urine Yeast Salicylates (15-30) mg/dL Urine Opiates Screen (Not Detect) Urine Fentanyl Screen (Not Detect) Acetaminophen (<30) mcg/mL Ur Barbiturates Screen (Not Detect) Valproic Acid (50.0-100.0) mcg/mL Ur Phencyclidine Scrn (Not Detect) Ur Amphetamines Screen (Not Detect) U Benzodiazepines Scrn (Not Detect) Urine Cocaine Screen (Not Detect) U Marijuana (THC) Screen (Not Detect) Ethyl Alcohol mg/dL COVID-19 (GABBY) (Negative) COVID-19 Clin Com Influenza Type A (MILKA) (Negative) Influenza Type B (MILKA) (Negative) Influenza A & B Note 05/07/23 05/07/23 05/07/23 Range/Units 22:47 22:47 22:47 WBC (4.8-10.8) X10*3/uL RBC (4.60-5.80) X10*6/uL Hgb (14.0-18.0) g/dl Hct (42.0-52.0) % MCV (80.0-98.0) fL MCH (27.0-33.0) pg MCHC (31.0-36.0) g/dl RDW (11.0-16.0) % Plt Count (160-400) X10*3/uL MPV (9.4-12.4) fL Immature Gran % (Auto) (0.0-0.4) % Neut % (Auto) (45-73) % Lymph % (Auto) (20-40) % [place] % (Auto) (2-11) % Eos % (Auto) (0-4) % Baso % (Auto) (0-2) % Lymph # (Auto) (1.2-4.9) X10*3/uL [place] # (Auto) (0.1-1.2) X10*3/uL Eos # (Auto) (0.0-0.4) X10*3/uL Baso # (Auto) (0.0-0.2) X10*3/uL Abs Immat Gran (auto) (0.00-0.03) X10*3/uL Absolute Neuts (auto) (2.0-8.3) x10*3/uL Absolute Nucleated RBC (0.0-0.012) X10*3/uL Nucleated RBC % (auto) (0.0-0.2) /100WBC Sodium (135-145) mmol/L Potassium (3.3-5.1) mmol/L Chloride (96-108) mmol/L Carbon Dioxide (22-29) mmol/L Anion Gap (12-20) BUN (9-16) mg/dL Creatinine (0.5-1.4) mg/dL Estim Creat Clear Calc Estimated GFR Random Glucose (60-115) mg/dL Calcium (8.4-10.2) mg/dL Total Bilirubin (0.0-1.0) mg/dL AST (5-37) U/L ALT (0-40) U/L Alkaline Phosphatase (39-117) U/L C-Reactive Protein (< or = 0.50) mg/dL Total Protein (6.5-8.0) g/dL Albumin (3.5-5.0) g/dL Urine Color Urine Appearance Urine pH (5.0-9.0) Ur Specific [place] (1.005-1.025) Urine Protein (Neg-Trace) mg/dL Urine Glucose (UA) (Negative) mg/dL Urine Ketones (Negative) mg/dL Urine Blood (Negative) Urine Nitrite (Negative) Ur Leukocyte Esterase (Negative) Urine RBC (0-2) /HPF Urine WBC (0-5) /HPF Urine WBC Clumps Ur Squamous Epith Cells (0-2) /HPF Ur Transition Epith Cell Ur Renal Epithelial Cell Calcium Oxalate Crystal Leucine Crystals Cystine Crystals Tyrosine Crystals Other Crystals Urine Bacteria Cancelled (None Seen) Urine Parasites Cancelled Bilirubin Casts Cancelled Epithelial Casts Cancelled Fatty Casts Cancelled Hyaline Casts >20 Cancelled (0-2) /LPF Granular Casts Present Cancelled Waxy Casts Cancelled Broad Casts Cancelled RBC Casts Cancelled WBC Casts Cancelled Other Casts Cancelled Urine Trichomonas Cancelled Urine Yeast Cancelled Salicylates (15-30) mg/dL Urine Opiates Screen Not Detected (Not Detect) Urine Fentanyl Screen Not Detected (Not Detect) Acetaminophen (<30) mcg/mL Ur Barbiturates Screen Not Detected (Not Detect) Valproic Acid (50.0-100.0) mcg/mL Ur Phencyclidine Scrn Not Detected (Not Detect) Ur Amphetamines Screen Not Detected (Not Detect) U Benzodiazepines Scrn Not Detected (Not Detect) Urine Cocaine Screen POSITIVE H (Not Detect) U Marijuana (THC) Screen Not Detected (Not Detect) Ethyl Alcohol mg/dL COVID-19 (GABBY) (Negative) COVID-19 Clin Com Influenza Type A (MILKA) (Negative) Influenza Type B (MILKA) (Negative) Influenza A & B Note 05/07/23 Range/Units 22:48 WBC (4.8-10.8) X10*3/uL RBC (4.60-5.80) X10*6/uL Hgb (14.0-18.0) g/dl Hct (42.0-52.0) % MCV (80.0-98.0) fL MCH (27.0-33.0) pg MCHC (31.0-36.0) g/dl RDW (11.0-16.0) % Plt Count (160-400) X10*3/uL MPV (9.4-12.4) fL Immature Gran % (Auto) (0.0-0.4) % Neut % (Auto) (45-73) % Lymph % (Auto) (20-40) % [place] % (Auto) (2-11) % Eos % (Auto) (0-4) % Baso % (Auto) (0-2) % Lymph # (Auto) (1.2-4.9) X10*3/uL [place] # (Auto) (0.1-1.2) X10*3/uL Eos # (Auto) (0.0-0.4) X10*3/uL Baso # (Auto) (0.0-0.2) X10*3/uL Abs Immat Gran (auto) (0.00-0.03) X10*3/uL Absolute Neuts (auto) (2.0-8.3) x10*3/uL Absolute Nucleated RBC (0.0-0.012) X10*3/uL Nucleated RBC % (auto) (0.0-0.2) /100WBC Sodium (135-145) mmol/L Potassium (3.3-5.1) mmol/L Chloride (96-108) mmol/L Carbon Dioxide (22-29) mmol/L Anion Gap (12-20) BUN (9-16) mg/dL Creatinine (0.5-1.4) mg/dL Estim Creat Clear Calc Estimated GFR Random Glucose (60-115) mg/dL Calcium (8.4-10.2) mg/dL Total Bilirubin (0.0-1.0) mg/dL AST (5-37) U/L ALT (0-40) U/L Alkaline Phosphatase (39-117) U/L C-Reactive Protein (< or = 0.50) mg/dL Total Protein (6.5-8.0) g/dL Albumin (3.5-5.0) g/dL Urine Color Urine Appearance Urine pH (5.0-9.0) Ur Specific [place] (1.005-1.025) Urine Protein (Neg-Trace) mg/dL Urine Glucose (UA) (Negative) mg/dL Urine Ketones (Negative) mg/dL Urine Blood (Negative) Urine Nitrite (Negative) Ur Leukocyte Esterase (Negative) Urine RBC (0-2) /HPF Urine WBC (0-5) /HPF Urine WBC Clumps Ur Squamous Epith Cells (0-2) /HPF Ur Transition Epith Cell Ur Renal Epithelial Cell Calcium Oxalate Crystal Leucine Crystals Cystine Crystals Tyrosine Crystals Other Crystals Urine Bacteria (None Seen) Urine Parasites Bilirubin Casts Epithelial Casts Fatty Casts Hyaline Casts (0-2) /LPF Granular Casts Waxy Casts Broad Casts RBC Casts WBC Casts Other Casts Urine Trichomonas Urine Yeast Salicylates (15-30) mg/dL Urine Opiates Screen (Not Detect) Urine Fentanyl Screen (Not Detect) Acetaminophen (<30) mcg/mL Ur Barbiturates Screen (Not Detect) Valproic Acid (50.0-100.0) mcg/mL Ur Phencyclidine Scrn (Not Detect) Ur Amphetamines Screen (Not Detect) U Benzodiazepines Scrn (Not Detect) Urine Cocaine Screen (Not Detect) U Marijuana (THC) Screen (Not Detect) Ethyl Alcohol mg/dL COVID-19 (GABBY) Negative (Negative) COVID-19 Clin Com See Note Influenza Type A (MILKA) Negative (Negative) Influenza Type B (MILKA) Negative (Negative) Influenza A & B Note See Note Discharge Plan Discharge Clinical Impression: Depression Patient Disposition: Still a Patient Prescriptions: No Action hydroxyzine pamoate 50 mg capsule 50 mg PO DAILY PRN (Reason: Agitation) amlodipine 2.5 mg tablet 2.5 mg PO DAILY quetiapine 100 mg tablet 100 mg PO BEDTIME lorazepam 0.5 mg tablet 0.5 mg PO DAILY divalproex 500 mg tablet extended release 24 hr 1,500 mg PO BEDTIME gabapentin 300 mg capsule 300 mg PO DAILY olanzapine 20 mg tablet 20 mg PO BEDTIME cholecalciferol (vitamin D3) 50 mcg (2,000 unit) capsule 50 mcg PO QAM penicillin V potassium 500 mg tablet 500 mg PO Q12H
[2023-05-07 22:53] LABS: Basophils Percent Auto 0.2 % (0-2)
[2023-05-07 22:55] LABS: Hematocrit 45.1 % (42.0-52.0); Hemoglobin 14.6 g/dl (14.0-18.0); Imm Gran Pct Auto 0.8 % (0.0-0.4); Lymphocytes Absolute Auto 1.1 X10*3/uL (1.2-4.9); Lymphocytes Percent Auto 8.9 % (20-40); Mean Corpuscular HGB Conc 32.4 g/dl (31.0-36.0); Mean Corpuscular Hemoglobin 32.4 pg (27.0-33.0); Mean Corpuscular Volume 100.2 fL (80.0-98.0); Mean Platelet Volume 8.7 fL (9.4-12.4); Monocytes Absolute Auto 0.6 X10*3/uL (0.1-1.2); Monocytes Percent Auto 4.9 % (2-11); Neutrophils Absolute Auto 10.5 x10*3/uL (2.0-8.3); Neutrophils Percent Auto 85.2 % (45-73); Red Cell Distribution Width 12.4 % (11.0-16.0)
[2023-05-07 22:59] LABS: Platelet Count 368 X10*3/uL (160-400); White Blood Count 12.4 X10*3/uL (4.8-10.8)
[2023-05-07 22:59] LABS: Appearance Urine Cloudy; Color Urine Yellow; Glucose Urine UA Negative (Negative); Leukocyte Esterase Urine Small (1+) (Negative); Nitrite Urine Negative (Negative); PH 5.5 (5.0-9.0); Specific Gravity - Urine 1.015 (1.005-1.025); UMIC TRIGGER UACC YES; Urine Blood Small (1+) (Negative); Urine Ketones Trace mg/dL (Negative); Urine Protein 100 (2+) mg/dL (Neg-Trace)
[2023-05-07 23:05] LABS: Amphetamine Screen Urine Not Detected (Not Detect); Barbiturates, Urine Not Detected (Not Detect); Benzodiazepines Screen Urine Not Detected (Not Detect); Cannabinoid Screen Urine Not Detected (Not Detect); Cocaine Screen Urine POSITIVE (Not Detect); Fentanyl, urine Not Detected (Not Detect); Opiate Screen Urine Not Detected (Not Detect); Phencyclidine Screen Urine Not Detected (Not Detect)
[2023-05-07 23:08] LABS: Alanine Aminotransferase 27 U/L (0-40); Albumin Level 4.4 g/dL (3.5-5.0); Alkaline Phosphatase 85 U/L (39-117); Anion Gap 18 (12-20); Aspartate Amino Transferase 32 U/L (5-37); Bilirubin Total 0.5 mg/dL (0.0-1.0); Blood Urea Nitrogen 17 mg/dL (9-16); Calcium 10.6 mg/dL (8.4-10.2); Carbon Dioxide 21 mmol/L (22-29); Chloride 105 mmol/L (96-108); Creatinine Clr Calc Pharmacy 71.2; Estimated Glomerular Filt Rate 52; Glucose Random 102 mg/dL (60-115); Potassium 4.6 mmol/L (3.3-5.1); Sodium 139 mmol/L (135-145); Total Protein 8.6 g/dL (6.5-8.0)
[2023-05-07 23:09] LABS: Acetaminophen LAB < 3 mcg/mL (<30); C Reactive Protein 0.79 mg/dL (< or = 0.50); Ethanol < 10 mg/dL; Salicylate < 5.0 mg/dL (15-30); Valproate < 12.5 mcg/mL (50.0-100.0)
[2023-05-07 23:11] LABS: COVID-19 Test Negative (Negative); IDNOW Serial# 55D5AD1C
[2023-05-07 23:13] LABS: IDNOW Serial# 16C4AD1C; Influenza A Negative (Negative); Influenza B2 Negative (Negative)
[2023-05-07 23:20] LABS: Bacteria Urine None Seen (None Seen); Granular Casts Urine Present; Hyaline Casts Urine >20 /LPF (0-2); UACC Culture Trigger YES; WBC Urine 21-50 /HPF (0-5)
--- NOTE | 2023-05-08 | ECG_ITS ---
Test Reason : CHECK QT Blood Pressure : / mmHG Vent. Rate : 078 BPM Atrial Rate : 078 BPM P-R Int : 168 ms QRS Dur : 070 ms QT Int : 384 ms P-R-T Axes : 017 -08 172 degrees QTc Int : 437 ms Normal sinus rhythm T wave abnormality, consider anterolateral ischemia Abnormal ECG When compared with ECG of 27-JUN-2019 23:37, T wave inversion now evident in Anterior leads Referred By: Fariha Fields Electronically Signed By:Hamilton Prieto
[2023-05-08] MEDS: Divalproex Sodium ER 500 MG TAB.ER.24H 1500 MG PO ×2 (00:40→20:47)
[2023-05-08] MEDS: QUEtiapine Fumarate 100 MG TABLET PO ×2 (00:40→20:48)
[2023-05-08] MEDS: OLANZapine 10 MG TABLET 20 MG PO ×2 (00:41→20:48)
[2023-05-08] MEDS: LORazepam 0.5 MG TABLET PO ×2 (00:59→11:07)
[2023-05-08] MEDS: Acetaminophen 325 MG TABLET 975 MG PO (01:00)
[2023-05-08] MEDS: Penicillin V Potassium 250 MG TABLET 500 MG PO ×2 (01:00→14:17)
[2023-05-08 06:42] VITALS: BP 100/63; PULSE 85; RESP 16; TEMP 36.5; O2SAT 98
[2023-05-08 11:00] VITALS: BP 127/79; PULSE 87; RESP 16; TEMP 36.6; O2SAT 98
[2023-05-08] MEDS: amLODIPine Besylate 2.5 MG TABLET PO (11:05)
[2023-05-08] MEDS: Gabapentin 300 MG CAPSULE PO (11:05)
--- NOTE | 2023-05-08 14:23 | PC.NURSE ---
Pt medicated per MAR- provided with PB&J per request
[2023-05-08] MEDS: OLANZapine 5 MG TABLET PO (16:52)
[2023-05-08] MEDS: LORazepam 1 MG TABLET 2 MG PO (16:53)
[2023-05-08] MEDS: Cholecalciferol (Vitamin D3) 25 MCG TABLET 50 MCG PO (16:53)
[2023-05-08 17:28] VITALS: BMI 27.4
[2023-05-08 18:00] VITALS: BP 124/75; PULSE 101; RESP 18; TEMP 36.8
[2023-05-08] MEDS: Magnesium Hydrox/Alum Hydrox 30 ML ORAL.SUSP PO (19:24)
[2023-05-08] MEDS: Omeprazole 40 MG CAPSULE.DR PO (20:48)
[2023-05-08] MEDS: cefuroxime axetiL 500 MG TABLET PO (20:48)
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
[2023-05-09] MEDS: Penicillin V Potassium 250 MG TABLET 500 MG PO ×2 (00:06→12:51)
[2023-05-09] MEDS: LORazepam 1 MG TABLET PO ×2 (00:06→12:58)
[2023-05-09] MEDS: Magnesium Hydrox/Alum Hydrox 30 ML ORAL.SUSP PO (03:59)
[2023-05-09] MEDS: Omeprazole 40 MG CAPSULE.DR PO ×2 (05:24→16:53)
[2023-05-09 08:03] VITALS: BP 156/100; PULSE 98; RESP 16; TEMP 36.9; O2SAT 96
[2023-05-09] MEDS: amLODIPine Besylate 2.5 MG TABLET PO (08:19)
[2023-05-09] MEDS: Gabapentin 300 MG CAPSULE PO (08:19)
[2023-05-09] MEDS: cefuroxime axetiL 500 MG TABLET PO ×2 (08:19→20:35)
[2023-05-09] MEDS: Folic Acid 1 MG TABLET PO (08:20)
[2023-05-09] MEDS: Cholecalciferol (Vitamin D3) 25 MCG TABLET 50 MCG PO (08:20)
[2023-05-09] MEDS: Thiamine HCL 100 MG TABLET PO (08:20)
[2023-05-09] MEDS: LORazepam 1 MG TABLET 2 MG PO ×3 (08:44→21:37)
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
[2023-05-09] MEDS: predniSONE 20 MG TABLET PO (13:47)
[2023-05-09] MEDS: Bismuth Subsalicylate Liquid 524 MG/30 ML ORAL.SUSP 262 MG PO ×2 (13:47→20:33)
[2023-05-09] MEDS: Acetaminophen 325 MG TABLET 650 MG PO (17:19)
[2023-05-09 17:30] VITALS: BP 141/87; PULSE 101; TEMP 36.2; O2SAT 93
[2023-05-09] MEDS: OLANZapine 10 MG TABLET 20 MG PO (20:34)
[2023-05-09] MEDS: Divalproex Sodium ER 500 MG TAB.ER.24H 1500 MG PO (20:35)
[2023-05-09] MEDS: QUEtiapine Fumarate 100 MG TABLET PO (20:35)
[2023-05-09] MEDS: Fluticasone/Umeclidinium/Vilanterol 100/62.5/25 BLST.W.DEV 1 PUFF INHALE (21:37)
[2023-05-09] MEDS: traZODone HCL 50 MG TABLET PO (21:38)
--- NOTE | 2023-05-10 | ECG_ITS ---
Test Reason : chest pain Blood Pressure : / mmHG Vent. Rate : 101 BPM Atrial Rate : 101 BPM P-R Int : 166 ms QRS Dur : 068 ms QT Int : 316 ms P-R-T Axes : 043 020 037 degrees QTc Int : 409 ms Sinus tachycardia Nonspecific T wave abnormality Abnormal ECG When compared with ECG of 08-MAY-2023 11:58, No significant change was found Referred By: Wade Hollis Electronically Signed By:Hamilton Prieto
[2023-05-10] MEDS: guaiFENesin DM 200/20/10 ML 10 ML SYRUP PO ×2 (02:06→08:31)
[2023-05-10] MEDS: Penicillin V Potassium 250 MG TABLET 500 MG PO ×3 (02:06→22:04)
[2023-05-10] MEDS: Ondansetron ODT 4 MG TAB.RAPDIS TRANSLINGU ×2 (02:06→04:50)
[2023-05-10] MEDS: traZODone HCL 50 MG TABLET PO (03:20)
[2023-05-10] MEDS: cefuroxime axetiL 500 MG TABLET PO ×2 (08:18→22:04)
[2023-05-10] MEDS: Folic Acid 1 MG TABLET PO (08:18)
[2023-05-10] MEDS: Gabapentin 300 MG CAPSULE PO (08:18)
[2023-05-10] MEDS: Cholecalciferol (Vitamin D3) 25 MCG TABLET 50 MCG PO (08:18)
[2023-05-10] MEDS: Thiamine HCL 100 MG TABLET PO (08:18)
[2023-05-10] MEDS: predniSONE 20 MG TABLET PO (08:18)
[2023-05-10] MEDS: Fluticasone/Umeclidinium/Vilanterol 100/62.5/25 BLST.W.DEV 1 PUFF INHALE (08:18)
[2023-05-10] MEDS: Omeprazole 40 MG CAPSULE.DR PO ×2 (08:18→16:37)
[2023-05-10] MEDS: amLODIPine Besylate 2.5 MG TABLET PO (08:19)
[2023-05-10 08:24] VITALS: BP 134/75; PULSE 104; RESP 18; TEMP 36.6; O2SAT 95
--- NOTE | 2023-05-10 08:30 | HO.PSYCHPN ---
Subjective Subjective Date of Service: 05/10/23 Reason For Visit: Depression Subjective Notes: Conditional Voluntary Interim History: Patient was seen and discussed in rounds today. Records and plans were reviewed. He is settling into his admission. He talked about the reasons that led to his hospitalization. He is complaining of a cough that prevented him from sleeping. He is on 2 antibiotics and I added Robitussin p.r.n.. He is going through a detox protocol. He did score on his CIWA. No other changes or additions today Medication Compliance: Yes Side effects from medications: No Review of Systems Review of Systems Cough Yes all other systems are reviewed and are negative Mental Status Exam Mental Status Exam Narrative: In today's visit he is alert, oriented and pleasant. He was able to recognize me. Speech is normal. Good eye contact. Affect is appropriate and tense. No signs of psychosis. No delusions. No SI. Cognitively is intact. Judgment is intact Diagnostics Vital Signs (24Hr): Vital Signs - 24 hr 05/09/23 17:30 05/10/23 08:24 Temperature 97.1 F 97.9 F Pulse Rate 101 H 104 H Respiratory Rate 18 Blood Pressure 141/87 H 134/75 Pulse Oximetry 93 95 Oxygen Delivery Method Room Air Room Air BMI result Body Mass Index 27.4 Labs 05/07/23 22:46 05/07/23 22:46 Imaging Radiology Impressions: ITS Impressions Chest X-Ray 05/07/23 22:30 IMPRESSION: Unremarkable chest examination. Medications Medications Current Medications Acetaminophen (Acetaminophen 325 Mg Tablet) 650 mg PO Q6H PRN PRN Reason: Headache/Pain Mild Scale (1-3) Last Admin: 05/09/23 17:19 Dose: 650 mg Al Hydroxide/Mg Hydroxide (Magnesium Hydrox/Alum Hydrox 30 Ml Oral.Susp) 30 ml PO Q6H PRN PRN Reason: Heartburn/Nausea Last Admin: 05/09/23 03:59 Dose: 30 ml Albuterol Sulfate (Albuterol Sulfate 90 Mcg 8 Gm Inhaler) 1 puff INHALE RQ4H PRN PRN Reason: wheezing/sob Amlodipine Besylate (Amlodipine Besylate 2.5 Mg Tablet) 2.5 mg PO DAILY [facility]; Protocol Last Admin: 05/10/23 08:19 Dose: 2.5 mg Bismuth Subsalicylate (Bismuth Subsalicylate Liquid 524 Mg/30 Ml Oral.Susp) 262 mg PO QID PRN PRN Reason: GERD Last Admin: 05/09/23 20:33 Dose: 262 mg Cefuroxime Axetil (Cefuroxime Axetil 500 Mg Tablet) 500 mg PO BID [facility] Last Admin: 05/10/23 08:18 Dose: 500 mg Divalproex Sodium (Divalproex Sodium Er 500 Mg Tab.Er.24h) 1,500 mg PO BEDTIME [facility] Last Admin: 05/09/23 20:35 Dose: 1,500 mg Fluticasone/Umeclidinium/Vilanterol (Fluticasone/Umeclidinium/Vilanterol 100/62.5/25 Blst.W.Dev) 1 puff INHALE RDAILY [facility] Last Admin: 05/10/23 08:18 Dose: 1 puff Folic Acid (Folic Acid 1 Mg Tablet) 1 mg PO DAILY [facility] Last Admin: 05/10/23 08:18 Dose: 1 mg Gabapentin (Gabapentin 300 Mg Capsule) 300 mg PO DAILY [facility] Last Admin: 05/10/23 08:18 Dose: 300 mg Guaifenesin (Guaifenesin 100 Mg/5 Ml Liquid) 5 ml PO Q4H PRN PRN Reason: cough Guaifenesin/Dextromethorphan (Guaifenesin Dm 200/20/10 Ml 10 Ml Syrup) 10 ml PO Q6H PRN PRN Reason: cough Last Admin: 05/10/23 02:06 Dose: 10 ml Hydroxyzine HCl (Hydroxyzine Hcl 25 Mg Tablet) 25 mg PO Q6H PRN PRN Reason: Anxiety Lorazepam (Lorazepam 1 Mg Tablet) 1 mg PO Q4H PRN PRN Reason: CIWA 8-12 Lorazepam (Lorazepam 1 Mg Tablet) 2 mg PO Q4H PRN PRN Reason: CIWA >13 Magnesium Hydroxide (Milk Of Magnesia 30 Ml Oral.Susp) 30 ml PO DAILY PRN PRN Reason: Constipation Nicotine (Nicotine 21 Mg Patch.Td24) 21 mg TRANSDERMA DAILY PRN PRN Reason: smoking cessation Nicotine Polacrilex (Nicotine Polacrilex 2 Mg Gum) 4 mg BUCCAL Q2H PRN PRN Reason: Nicotine Cravings Olanzapine (Olanzapine 10 Mg Tablet) 20 mg PO BEDTIME [facility] Last Admin: 05/09/23 20:34 Dose: 20 mg Olanzapine (Olanzapine 5 Mg Tablet) 5 mg PO TID PRN PRN Reason: agitation Last Admin: 05/08/23 16:52 Dose: 5 mg Omeprazole (Omeprazole 40 Mg Capsule.Dr) 40 mg PO BID@0630,1630 [facility] Last Admin: 05/10/23 08:18 Dose: 40 mg Ondansetron HCl (Ondansetron Odt 4 Mg Tab.Rapdis) 4 mg TRANSLINGU Q6H PRN PRN Reason: Nausea and Vomiting Last Admin: 05/10/23 04:50 Dose: 4 mg Penicillin V Potassium (Penicillin V Potassium 250 Mg Tablet) 500 mg PO Q12H [facility] Stop: 05/12/23 08:59 Prednisone (Prednisone 20 Mg Tablet) 20 mg PO DAILY [facility] Stop: 05/12/23 10:00 Last Admin: 05/10/23 08:18 Dose: 20 mg Quetiapine Fumarate (Quetiapine Fumarate 100 Mg Tablet) 100 mg PO BEDTIME [facility] Last Admin: 05/09/23 20:35 Dose: 100 mg Thiamine HCl (Thiamine Hcl 100 Mg Tablet) 100 mg PO DAILY [facility] Last Admin: 05/10/23 08:18 Dose: 100 mg Trazodone HCl (Trazodone Hcl 50 Mg Tablet) 50 mg PO BEDTIME MRX1 PRN PRN Reason: Insomnia Last Admin: 05/10/23 03:20 Dose: 50 mg Vitamin D (Cholecalciferol (Vitamin D3) 25 Mcg Tablet) 50 mcg PO DAILY [facility] Last Admin: 05/10/23 08:18 Dose: 50 mcg Allergies Allergies Allergy/AdvReac Type Severity Reaction Status Date / Time No Known Allergies Allergy Verified 02/23/23 07:45 [No Known Allergies*] Assessment & Plan Assessment & Plan (1) Depression: Status: Acute Code(s): F32.A - Depression, unspecified Plan 05/10: Continue current regimen and plans. Added Alexa jonas Patient educated on: medication risk/benefits Reason for continued inpatient stay Substantial Risk for: med/psych decompensation Time Spent With Patient Time: Total time managing care of this patient today ____ minutes.
[2023-05-10] MEDS: OLANZapine 5 MG TABLET PO (14:22)
[2023-05-10] MEDS: hydrOXYzine HCL 25 MG TABLET PO (15:28)
[2023-05-10 16:10] VITALS: BP 131/102; PULSE 101; RESP 16; TEMP 36.8; O2SAT 96
[2023-05-10 16:40] VITALS: BP 137/84; PULSE 102; TEMP 37.1
[2023-05-10] MEDS: Acetaminophen 325 MG TABLET 650 MG PO (16:47)
[2023-05-10] MEDS: LORazepam 1 MG TABLET PO (16:48)
[2023-05-10] MEDS: OLANZapine 10 MG TABLET 20 MG PO (22:04)
[2023-05-10] MEDS: Divalproex Sodium ER 500 MG TAB.ER.24H 1500 MG PO (22:05)
[2023-05-10] MEDS: QUEtiapine Fumarate 100 MG TABLET PO (22:06)
[2023-05-11] MEDS: Omeprazole 40 MG CAPSULE.DR PO ×2 (06:18→16:48)
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
[2023-05-11] MEDS: Gabapentin 300 MG CAPSULE PO (09:06)
[2023-05-11] MEDS: Penicillin V Potassium 250 MG TABLET 500 MG PO ×2 (09:06→20:53)
[2023-05-11] MEDS: cefuroxime axetiL 500 MG TABLET PO ×2 (09:06→20:52)
[2023-05-11] MEDS: predniSONE 20 MG TABLET PO (09:07)
[2023-05-11] MEDS: Cholecalciferol (Vitamin D3) 25 MCG TABLET 50 MCG PO (09:07)
[2023-05-11] MEDS: Folic Acid 1 MG TABLET PO (09:07)
[2023-05-11] MEDS: amLODIPine Besylate 2.5 MG TABLET PO (09:07)
[2023-05-11] MEDS: Fluticasone/Umeclidinium/Vilanterol 100/62.5/25 BLST.W.DEV 1 PUFF INHALE (09:08)
[2023-05-11] MEDS: Thiamine HCL 100 MG TABLET PO (09:09)
[2023-05-11 09:13] VITALS: BP 124/70; PULSE 84; RESP 16; TEMP 36.3; O2SAT 95
[2023-05-11] MEDS: guaiFENesin DM 200/20/10 ML 10 ML SYRUP PO ×2 (11:38→20:55)
[2023-05-11] MEDS: LORazepam 1 MG TABLET PO ×2 (11:38→17:24)
[2023-05-11] MEDS: Milk of Magnesia 30 ML ORAL.SUSP PO (14:31)
[2023-05-11 17:37] VITALS: BP 141/80; PULSE 94; TEMP 37.1
[2023-05-11] MEDS: Divalproex Sodium ER 500 MG TAB.ER.24H 1500 MG PO (20:52)
[2023-05-11] MEDS: OLANZapine 10 MG TABLET 20 MG PO (20:52)
[2023-05-11] MEDS: QUEtiapine Fumarate 100 MG TABLET PO (20:53)
[2023-05-11] MEDS: Acetaminophen 325 MG TABLET 650 MG PO (21:31)
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
[2023-05-12] MEDS: traZODone HCL 50 MG TABLET PO ×2 (00:18→02:13)
[2023-05-12] MEDS: Ondansetron ODT 4 MG TAB.RAPDIS TRANSLINGU (01:06)
[2023-05-12] MEDS: Bismuth Subsalicylate Liquid 524 MG/30 ML ORAL.SUSP 262 MG PO (04:09)
[2023-05-12] MEDS: Omeprazole 40 MG CAPSULE.DR PO ×2 (06:23→16:27)
[2023-05-12 08:10] VITALS: BP 116/66; PULSE 95; RESP 18; TEMP 36.6; O2SAT 95
[2023-05-12] MEDS: Fluticasone/Umeclidinium/Vilanterol 100/62.5/25 BLST.W.DEV 1 PUFF INHALE (08:46)
[2023-05-12] MEDS: Cholecalciferol (Vitamin D3) 25 MCG TABLET 50 MCG PO (09:18)
[2023-05-12] MEDS: cefuroxime axetiL 500 MG TABLET PO ×2 (09:18→23:26)
[2023-05-12] MEDS: amLODIPine Besylate 2.5 MG TABLET PO (09:19)
[2023-05-12] MEDS: Gabapentin 300 MG CAPSULE PO (09:19)
[2023-05-12] MEDS: Thiamine HCL 100 MG TABLET PO (09:19)
[2023-05-12] MEDS: predniSONE 20 MG TABLET PO (09:19)
[2023-05-12] MEDS: Folic Acid 1 MG TABLET PO (09:19)
[2023-05-12] MEDS: Milk of Magnesia 30 ML ORAL.SUSP PO (11:40)
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
[2023-05-12] MEDS: Lactulose 20 GM/30 ML SOLUTION 30 GM PO ×2 (12:37→20:55)
[2023-05-12] MEDS: guaiFENesin DM 200/20/10 ML 10 ML SYRUP PO (15:57)
[2023-05-12 18:40] VITALS: BP 129/80; PULSE 106; RESP 16; TEMP 36.8; O2SAT 93
[2023-05-12] MEDS: OLANZapine 10 MG TABLET 20 MG PO (20:54)
[2023-05-12] MEDS: QUEtiapine Fumarate 100 MG TABLET PO (23:26)
[2023-05-12] MEDS: Divalproex Sodium ER 500 MG TAB.ER.24H 1500 MG PO (23:26)
[2023-05-12] MEDS: Acetaminophen 325 MG TABLET 650 MG PO (23:27)
[2023-05-13] MEDS: Albuterol Sulfate 90 MCG 8 GM INHALER 1 PUFF INHALE (02:40)
[2023-05-13] MEDS: guaiFENesin DM 200/20/10 ML 10 ML SYRUP PO ×3 (02:41→20:20)
[2023-05-13] MEDS: Ondansetron ODT 4 MG TAB.RAPDIS TRANSLINGU (04:19)
[2023-05-13] MEDS: Omeprazole 40 MG CAPSULE.DR PO ×2 (06:04→17:42)
[2023-05-13 07:57] VITALS: BP 108/69; PULSE 94; RESP 18; TEMP 36.2; O2SAT 94
[2023-05-13 08:02] LABS: Ammonia 27 umol/L (13-55)
[2023-05-13 08:09] LABS: Valproate < 12.5 mcg/mL (50.0-100.0)
[2023-05-13 08:14] LABS: Alanine Aminotransferase 28 U/L (0-40); Albumin Level 3.9 g/dL (3.5-5.0); Alkaline Phosphatase 77 U/L (39-117); Aspartate Amino Transferase 17 U/L (5-37); Bilirubin Direct 0.2 mg/dL (0.0-0.5); Bilirubin Total 0.3 mg/dL (0.0-1.0); Total Protein 7.2 g/dL (6.5-8.0)
[2023-05-13] MEDS: Fluticasone/Umeclidinium/Vilanterol 100/62.5/25 BLST.W.DEV 1 PUFF INHALE (08:21)
[2023-05-13] MEDS: Gabapentin 300 MG CAPSULE PO (08:22)
[2023-05-13] MEDS: amLODIPine Besylate 2.5 MG TABLET PO (08:22)
[2023-05-13] MEDS: Folic Acid 1 MG TABLET PO (08:22)
[2023-05-13] MEDS: Cholecalciferol (Vitamin D3) 25 MCG TABLET 50 MCG PO (08:22)
[2023-05-13] MEDS: cefuroxime axetiL 500 MG TABLET PO ×2 (08:22→21:53)
[2023-05-13] MEDS: Thiamine HCL 100 MG TABLET PO (08:22)
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
[2023-05-13 14:08] LABS: MANUAL DIFF FLAG NO
[2023-05-13 14:11] LABS: Basophils Absolute Auto 0.1 X10*3/uL (0.0-0.2); Basophils Percent Auto 0.5 % (0-2); Eosinophils Absolute Auto 0.2 X10*3/uL (0.0-0.4); Eosinophils Percent Auto 2.4 % (0-4); Hematocrit 39.2 % (42.0-52.0); Imm Gran Abs Auto 0.09 X10*3/uL (0.00-0.03); Imm Gran Pct Auto 0.9 % (0.0-0.4); Lymphocytes Absolute Auto 2.5 X10*3/uL (1.2-4.9); Lymphocytes Percent Auto 25.5 % (20-40); Mean Corpuscular HGB Conc 33.2 g/dl (31.0-36.0); Mean Corpuscular Hemoglobin 33.9 pg (27.0-33.0); Mean Corpuscular Volume 102.3 fL (80.0-98.0); Mean Platelet Volume 8.7 fL (9.4-12.4); Monocytes Absolute Auto 0.7 X10*3/uL (0.1-1.2); Monocytes Percent Auto 7.2 % (2-11); Neutrophils Absolute Auto 6.2 x10*3/uL (2.0-8.3); Neutrophils Percent Auto 63.5 % (45-73); Platelet Count 278 X10*3/uL (160-400); Red Blood Count 3.83 X10*6/uL (4.60-5.80); Red Cell Distribution Width 12.6 % (11.0-16.0); White Blood Count 9.7 X10*3/uL (4.8-10.8)
[2023-05-13] MEDS: hydrOXYzine HCL 25 MG TABLET PO (17:42)
[2023-05-13 18:00] VITALS: BP 132/84; PULSE 100; RESP 18; TEMP 36.7; O2SAT 95
[2023-05-13] MEDS: Throat Lozenge, Medicated LOZENGE 1 LOZENGE MUCOUS MEM (18:50)
[2023-05-13] MEDS: Acetaminophen 325 MG TABLET 650 MG PO (20:20)
[2023-05-13] MEDS: Lactulose 20 GM/30 ML SOLUTION 30 GM PO (21:51)
[2023-05-13] MEDS: OLANZapine 10 MG TABLET 20 MG PO (21:52)
[2023-05-13] MEDS: QUEtiapine Fumarate 100 MG TABLET PO (21:53)
[2023-05-14] MEDS: guaiFENesin DM 200/20/10 ML 10 ML SYRUP PO ×2 (01:22→15:47)
[2023-05-14] MEDS: Throat Lozenge, Medicated LOZENGE 1 LOZENGE MUCOUS MEM ×3 (01:22→19:42)
[2023-05-14] MEDS: Ondansetron ODT 4 MG TAB.RAPDIS TRANSLINGU (01:54)
[2023-05-14] MEDS: Omeprazole 40 MG CAPSULE.DR PO ×2 (06:34→15:47)
[2023-05-14] MEDS: Fluticasone/Umeclidinium/Vilanterol 100/62.5/25 BLST.W.DEV 1 PUFF INHALE (08:33)
[2023-05-14] MEDS: Cholecalciferol (Vitamin D3) 25 MCG TABLET 50 MCG PO (08:33)
[2023-05-14] MEDS: cefuroxime axetiL 500 MG TABLET PO ×2 (08:33→21:20)
[2023-05-14] MEDS: Folic Acid 1 MG TABLET PO (08:33)
[2023-05-14] MEDS: amLODIPine Besylate 2.5 MG TABLET PO (08:33)
[2023-05-14] MEDS: Thiamine HCL 100 MG TABLET PO (08:33)
[2023-05-14] MEDS: Gabapentin 300 MG CAPSULE PO (08:33)
[2023-05-14] MEDS: Lactulose 20 GM/30 ML SOLUTION 30 GM PO ×2 (08:34→21:20)
[2023-05-14 08:50] VITALS: BP 136/74; PULSE 94; RESP 16; TEMP 36.4; O2SAT 95
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
[2023-05-14] MEDS: guaiFENesin LA 600 MG TAB.ER.12H PO ×2 (14:35→21:19)
[2023-05-14] MEDS: risperiDONE 2 MG TABLET PO ×2 (14:35→21:20)
[2023-05-14 18:00] VITALS: BP 130/70; PULSE 97; RESP 16; TEMP 36.3; O2SAT 95
[2023-05-14] MEDS: Magnesium Oxide 400 MG TABLET PO (21:19)
[2023-05-14] MEDS: diphenhydrAMINE HCL 25 MG CAPSULE 50 MG PO (21:20)
[2023-05-14] MEDS: traZODone HCL 50 MG TABLET PO (21:20)
[2023-05-15] MEDS: Ondansetron ODT 4 MG TAB.RAPDIS TRANSLINGU (00:08)
[2023-05-15] MEDS: guaiFENesin DM 200/20/10 ML 10 ML SYRUP PO ×4 (01:57→19:58)
[2023-05-15] MEDS: Throat Lozenge, Medicated LOZENGE 1 LOZENGE MUCOUS MEM ×4 (01:57→23:41)
[2023-05-15] MEDS: Omeprazole 40 MG CAPSULE.DR PO ×2 (06:00→16:25)
--- NOTE | 2023-05-15 06:34 | PC.RT ---
ht due to no sitter staff. Pt will still need a sleep study.
[2023-05-15] MEDS: Cholecalciferol (Vitamin D3) 25 MCG TABLET 50 MCG PO (08:41)
[2023-05-15] MEDS: Fluticasone/Umeclidinium/Vilanterol 100/62.5/25 BLST.W.DEV 1 PUFF INHALE (08:41)
[2023-05-15] MEDS: Folic Acid 1 MG TABLET PO (08:41)
[2023-05-15] MEDS: cefuroxime axetiL 500 MG TABLET PO ×2 (08:42→19:58)
[2023-05-15] MEDS: amLODIPine Besylate 2.5 MG TABLET PO (08:42)
[2023-05-15] MEDS: Thiamine HCL 100 MG TABLET PO (08:42)
[2023-05-15] MEDS: guaiFENesin LA 600 MG TAB.ER.12H PO ×2 (08:42→19:59)
[2023-05-15] MEDS: risperiDONE 2 MG TABLET PO ×2 (08:42→19:59)
[2023-05-15] MEDS: Gabapentin 300 MG CAPSULE PO (08:42)
[2023-05-15 08:45] VITALS: BP 123/75; PULSE 101; RESP 18; TEMP 37.1; O2SAT 95
[2023-05-15 12:04] VITALS: BMI 32.3
[2023-05-15] MEDS: OLANZapine 5 MG TABLET PO (14:57)
[2023-05-15] MEDS: Acetaminophen 325 MG TABLET 650 MG PO (16:31)
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
[2023-05-15 17:23] VITALS: BP 143/89; PULSE 107; RESP 18; TEMP 36.8; O2SAT 96
[2023-05-15] MEDS: diphenhydrAMINE HCL 25 MG CAPSULE 50 MG PO (19:59)
[2023-05-15] MEDS: Magnesium Oxide 400 MG TABLET PO (19:59)
[2023-05-16] MEDS: guaiFENesin DM 200/20/10 ML 10 ML SYRUP PO ×2 (05:40→15:07)
[2023-05-16] MEDS: Throat Lozenge, Medicated LOZENGE 1 LOZENGE MUCOUS MEM ×2 (05:40→11:28)
[2023-05-16] MEDS: Omeprazole 40 MG CAPSULE.DR PO ×2 (05:40→16:28)
[2023-05-16] MEDS: Thiamine HCL 100 MG TABLET PO (08:22)
[2023-05-16] MEDS: Folic Acid 1 MG TABLET PO (08:22)
[2023-05-16] MEDS: Fluticasone/Umeclidinium/Vilanterol 100/62.5/25 BLST.W.DEV 1 PUFF INHALE (08:22)
[2023-05-16] MEDS: Cholecalciferol (Vitamin D3) 25 MCG TABLET 50 MCG PO (08:22)
[2023-05-16] MEDS: amLODIPine Besylate 2.5 MG TABLET PO (08:22)
[2023-05-16] MEDS: Gabapentin 300 MG CAPSULE PO (08:22)
[2023-05-16] MEDS: cefuroxime axetiL 500 MG TABLET PO ×2 (08:23→21:31)
[2023-05-16] MEDS: risperiDONE 2 MG TABLET PO ×2 (08:23→21:30)
[2023-05-16] MEDS: guaiFENesin LA 600 MG TAB.ER.12H PO ×2 (08:23→21:30)
[2023-05-16 08:25] VITALS: BP 114/62; PULSE 104; RESP 18; TEMP 36.4; O2SAT 94
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
[2023-05-16] MEDS: OLANZapine 5 MG TABLET PO (16:28)
[2023-05-16 18:00] VITALS: BP 157/90; PULSE 107; RESP 18; TEMP 36.7; O2SAT 96
[2023-05-16] MEDS: Magnesium Oxide 400 MG TABLET PO (21:30)
[2023-05-16] MEDS: diphenhydrAMINE HCL 25 MG CAPSULE 50 MG PO (21:31)
[2023-05-17] MEDS: traZODone HCL 25 MG HALFTAB 75 MG PO ×2 (03:22→21:54)
[2023-05-17] MEDS: Throat Lozenge, Medicated LOZENGE 1 LOZENGE MUCOUS MEM ×2 (03:23→13:39)
[2023-05-17] MEDS: guaiFENesin DM 200/20/10 ML 10 ML SYRUP PO ×2 (03:23→13:39)
[2023-05-17] MEDS: Omeprazole 40 MG CAPSULE.DR PO ×2 (05:52→16:33)
[2023-05-17 09:30] VITALS: BP 122/65; PULSE 95; RESP 18; TEMP 36.7; O2SAT 95
[2023-05-17] MEDS: Thiamine HCL 100 MG TABLET PO (09:40)
[2023-05-17] MEDS: amLODIPine Besylate 2.5 MG TABLET PO (09:40)
[2023-05-17] MEDS: Gabapentin 300 MG CAPSULE PO (09:40)
[2023-05-17] MEDS: risperiDONE 2 MG TABLET PO ×2 (09:40→21:54)
[2023-05-17] MEDS: Fluticasone/Umeclidinium/Vilanterol 100/62.5/25 BLST.W.DEV 1 PUFF INHALE (09:40)
[2023-05-17] MEDS: Folic Acid 1 MG TABLET PO (09:41)
[2023-05-17] MEDS: cefuroxime axetiL 500 MG TABLET PO ×2 (09:41→22:14)
[2023-05-17] MEDS: Cholecalciferol (Vitamin D3) 25 MCG TABLET 50 MCG PO (09:41)
[2023-05-17] MEDS: guaiFENesin LA 600 MG TAB.ER.12H PO ×2 (09:44→21:55)
[2023-05-17] MEDS: diphenhydrAMINE HCL 25 MG CAPSULE PO (14:00)
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
[2023-05-17 18:00] VITALS: BP 98/56; PULSE 98; RESP 18; TEMP 36.3; O2SAT 94
[2023-05-17] MEDS: Acetaminophen 325 MG TABLET 650 MG PO (20:41)
[2023-05-17] MEDS: diphenhydrAMINE HCL 25 MG CAPSULE 50 MG PO (21:54)
[2023-05-17] MEDS: Magnesium Oxide 400 MG TABLET PO (21:55)
[2023-05-18] MEDS: Omeprazole 40 MG CAPSULE.DR PO ×2 (06:02→16:20)
[2023-05-18 08:15] VITALS: BP 140/89; PULSE 103; RESP 18; TEMP 36.8; O2SAT 95
[2023-05-18] MEDS: Fluticasone/Umeclidinium/Vilanterol 100/62.5/25 BLST.W.DEV 1 PUFF INHALE (08:31)
[2023-05-18] MEDS: Gabapentin 300 MG CAPSULE PO (08:32)
[2023-05-18] MEDS: cefuroxime axetiL 500 MG TABLET PO ×2 (08:32→20:45)
[2023-05-18] MEDS: amLODIPine Besylate 2.5 MG TABLET PO (08:32)
[2023-05-18] MEDS: Cholecalciferol (Vitamin D3) 25 MCG TABLET 50 MCG PO (08:33)
[2023-05-18] MEDS: guaiFENesin LA 600 MG TAB.ER.12H PO ×2 (08:33→20:46)
[2023-05-18] MEDS: Folic Acid 1 MG TABLET PO (08:33)
[2023-05-18] MEDS: risperiDONE 2 MG TABLET PO (08:33)
[2023-05-18] MEDS: Thiamine HCL 100 MG TABLET PO (08:33)
[2023-05-18] MEDS: Acetaminophen 325 MG TABLET 650 MG PO ×2 (12:36→22:39)
[2023-05-18] MEDS: guaiFENesin DM 200/20/10 ML 10 ML SYRUP PO ×2 (12:37→23:43)
[2023-05-18] MEDS: Throat Lozenge, Medicated LOZENGE 1 LOZENGE MUCOUS MEM (12:37)
[2023-05-18] MEDS: diphenhydrAMINE HCL 25 MG CAPSULE PO ×2 (12:42→18:48)
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
[2023-05-18 17:05] VITALS: BP 146/79; PULSE 99; RESP 18; TEMP 36.6; O2SAT 96
[2023-05-18] MEDS: Magnesium Oxide 400 MG TABLET PO (20:45)
[2023-05-18] MEDS: diphenhydrAMINE HCL 25 MG CAPSULE 50 MG PO (20:45)
[2023-05-19] MEDS: Throat Lozenge, Medicated LOZENGE 1 LOZENGE MUCOUS MEM ×3 (04:30→15:10)
[2023-05-19] MEDS: Omeprazole 40 MG CAPSULE.DR PO ×2 (05:51→16:19)
[2023-05-19] MEDS: Gabapentin 300 MG CAPSULE PO (07:52)
[2023-05-19] MEDS: guaiFENesin LA 600 MG TAB.ER.12H PO ×2 (07:52→21:23)
[2023-05-19] MEDS: amLODIPine Besylate 2.5 MG TABLET PO (07:52)
[2023-05-19] MEDS: Fluticasone/Umeclidinium/Vilanterol 100/62.5/25 BLST.W.DEV 1 PUFF INHALE (07:52)
[2023-05-19] MEDS: Thiamine HCL 100 MG TABLET PO (07:52)
[2023-05-19] MEDS: Cholecalciferol (Vitamin D3) 25 MCG TABLET 50 MCG PO (07:52)
[2023-05-19] MEDS: Folic Acid 1 MG TABLET PO (07:52)
[2023-05-19] MEDS: risperiDONE 2 MG TABLET PO (07:53)
[2023-05-19 08:20] VITALS: BP 110/60; PULSE 104; RESP 18; TEMP 36.9; O2SAT 96
[2023-05-19] MEDS: guaiFENesin DM 200/20/10 ML 10 ML SYRUP PO ×2 (11:23→21:26)
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
[2023-05-19 17:14] VITALS: BP 124/70; PULSE 107; RESP 17; TEMP 36.4; O2SAT 96
[2023-05-19] MEDS: Magnesium Oxide 400 MG TABLET PO (21:23)
[2023-05-19] MEDS: diphenhydrAMINE HCL 25 MG CAPSULE 50 MG PO (21:23)
[2023-05-19] MEDS: traZODone HCL 25 MG HALFTAB 75 MG PO (21:25)
[2023-05-20] MEDS: traZODone HCL 25 MG HALFTAB 75 MG PO (00:21)
[2023-05-20] MEDS: guaiFENesin DM 200/20/10 ML 10 ML SYRUP PO ×2 (04:33→10:34)
[2023-05-20] MEDS: Omeprazole 40 MG CAPSULE.DR PO (06:07)
[2023-05-20 08:00] VITALS: BP 106/75; PULSE 97; RESP 18; TEMP 36.3; O2SAT 97
[2023-05-20] MEDS: Fluticasone/Umeclidinium/Vilanterol 100/62.5/25 BLST.W.DEV 1 PUFF INHALE (08:12)
[2023-05-20] MEDS: Thiamine HCL 100 MG TABLET PO (08:13)
[2023-05-20] MEDS: amLODIPine Besylate 2.5 MG TABLET PO (08:13)
[2023-05-20] MEDS: Cholecalciferol (Vitamin D3) 25 MCG TABLET 50 MCG PO (08:13)
[2023-05-20] MEDS: Gabapentin 300 MG CAPSULE PO (08:13)
[2023-05-20] MEDS: Folic Acid 1 MG TABLET PO (08:13)
[2023-05-20] MEDS: guaiFENesin LA 600 MG TAB.ER.12H PO (08:13)
[2023-05-20] MEDS: Throat Lozenge, Medicated LOZENGE 1 LOZENGE MUCOUS MEM (10:33)
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
== END 2023-05-20 11:06 | disposition home or self-care (01) | DRG 885 ==
LOC: HO.ED 05-08 14:25 → HO.PM5 05-08 14:53
PROVIDERS: Social Worker; Admitting Provider Psychiatry & Neurology Psychiatry; Emergency Provider Emergency Medicine; PCP Family Medicine; Visit Provider Psychiatry & Neurology Psychiatry
DX: F25.1 Schizoaffective disorder, depressive type (principal); R45.851 Suicidal ideations; F43.10 Post-traumatic stress disorder, unspecified; F10.10 Alcohol abuse, uncomplicated; Z91.148 Patient's other noncompliance with medication regimen for other reason; Z20.822 Contact with and (suspected) exposure to COVID-19; Z79.51 Long term (current) use of inhaled steroids; Z79.899 Other long term (current) drug therapy
CPT/HCPCS: 36415; 71046; 71250; 80053; 80076; 80143; 80164; 80179; 80307; 81001; 82140; 85025; 86140; 87086; 87502; 87635; 93005; 99285; S9485

== ENCOUNTER → 2023-05-08 11:58 | Outpatient (BNV) | payer OTHER, SELFPAY | PROVIDERS: Admitting Provider Psychiatry & Neurology Psychiatry; Emergency Provider Emergency Medicine; PCP Family Medicine; Visit Provider Internal Medicine Cardiovascular Disease | DX: R94.31 Abnormal electrocardiogram [ECG] [EKG] (principal) | CPT/HCPCS: 93010 ==

== ENCOUNTER 2023-05-08 14:42 | Outpatient (BNV) | payer OTHER, SELFPAY | END 2023-05-10 17:50 | PROVIDERS: Admitting Provider Psychiatry & Neurology Psychiatry; Emergency Provider Emergency Medicine; PCP Family Medicine; Visit Provider Internal Medicine Cardiovascular Disease | DX: R94.31 Abnormal electrocardiogram [ECG] [EKG] (principal) | CPT/HCPCS: 93010 ==

== ENCOUNTER → 2023-05-08 14:42 | Outpatient (BNV) | payer OTHER, SELFPAY | PROVIDERS: Admitting Provider Psychiatry & Neurology Psychiatry; Emergency Provider Emergency Medicine; PCP Family Medicine; Visit Provider Psychiatry & Neurology Psychiatry | DX: F25.1 Schizoaffective disorder, depressive type (principal); F43.11 Post-traumatic stress disorder, acute; F10.90 Alcohol use, unspecified, uncomplicated | CPT/HCPCS: 90792; 99231; 99232; 99239 ==

== ENCOUNTER 2024-05-22 13:00 | Emergency (ER) | payer OTHER, SELFPAY ==
--- NOTE | ~2024-05-22 | CT_ITS ---
CLINICAL HISTORY: RUE RLE numbness weakness CT head without contrast Comparison: CT/IA/SR - BRAIN WO IV CONTRAST 33356 - 06/29/16 15:00 EDT Findings: No intra-axial mass, midline shift, hydrocephalus, or acute hemorrhage. Mild volume loss. There is no sinus or mastoid fluid. The orbits are within normal limits. No skull fracture. IMPRESSION: 1. No acute intracranial findings. This document has been electronically signed by: Giovanni Jacobson MD on 05/22/2024 15:24:33
--- NOTE | ~2024-05-22 | XR_ITS ---
CLINICAL HISTORY: cough 2 view chest x-ray. Comparison: CT/AR/SR - CT CHEST WO IV CON - 05/13/23 17:11 EST CR/SR - XR CHEST 2V - 05/07/23 22:34 EST Findings: The lungs are adequately expanded. No focal consolidation. No effusion or pneumothorax. Cardiac and mediastinal contours are within normal limits. No acute osseous abnormality Impression: No acute process. This document has been electronically signed by: Giovanni aJcobson MD on 05/22/2024 13:53:23
--- NOTE | 2024-05-22 13:02 | ED_ITS ---
HPI - General Adult General Chief complaint: Neuro Symptoms/Deficit Stated complaint: High BP & cough ; concerns of stroke Time Seen by Provider: 05/22/24 14:13 Source: patient and old records reviewed Mode of arrival: ambulatory Limitations: no limitations History of Present Illness ED Provider: FLAKITA DELGADO narrative: 59 yo male with PMH of ETOH use, COPD not on home O2, PTSD, cocaine abuse, schizoaffective disorder here with c/o cough x 2 weeks without fever or mucous but has not gotten better. No travel, sick contacts. He denies CP/SOB. When I asked him abou his numbness he denies weakness states it has been on and off for 2 weeks and happens when his BP is high. He then notes his ex GF is giving him a hard time and he now has SI/HI. He is neuro intact on arrival. States he needs help MD complaint: URI/mental health Onset (ago): week(s) (2) Location: chest Radiation: non-radiation Severity: mild Relieving factors: none Exacerbating factors: other Associated symptoms: cough Treatments prior to arrival: none Related Data Previous Rx's ?Medication ?Instructions ?Recorded albuterol sulfate 90 mcg/actuation 1 puff inhalation RQ4H PRN 05/20/23 aerosol inhaler (Ventolin HFA) wheezing/sob 30 days #1 g amlodipine 2.5 mg tablet 2.5 mg PO DAILY #30 tabs 05/20/23 cholecalciferol (vitamin D3) 25 50 mcg (2 x 25 mcg (1,000 unit)) 05/20/23 mcg (1,000 unit) tablet PO DAILY #30 tabs diphenhydramine HCl 25 mg capsule 50 mg (2 x 25 mg) PO BEDTIME #30 05/20/23 caps divalproex 500 mg tablet,extended 1,500 mg (3 x 500 mg) PO BEDTIME 05/20/23 release 24 hr #90 tabs fluticasone fur. 100 mcg-umeclid 1 inh inhalation RDAILY #1 ea 05/20/23 62.5 mcg-vilant 25 mcg inhalat.powder (Trelegy Ellipta) folic acid 1 mg tablet 1 mg PO DAILY #30 tabs 05/20/23 gabapentin 300 mg capsule 300 mg PO DAILY #30 caps 05/20/23 guaifenesin 600 mg tablet, 600 mg PO BID #30 tabs 05/20/23 extended release 12 hr (Mucinex) nicotine 21 mg/24 hr daily 21 mg transdermal DAILY PRN 05/20/23 transdermal patch smoking cessation #14 ea risperidone 2 mg tablet 2 mg PO BID #60 tabs 05/20/23 thiamine mononitrate (vit B1) 100 100 mg PO DAILY #30 tabs 05/20/23 mg tablet Allergies Allergy/AdvReac Type Severity Reaction Status Date / Time No Known Allergies Allergy Verified 05/22/24 13:05 [No Known Allergies*] Review of Systems 2 Review of Systems: Constitutional : No Fever, No Chills ENT/Mouth : No Ear Pain, No Nasal Congestion, No sore throat Eyes: No Eye Pain, No Swelling, No Redness Cardiovascular : No Chest Pain, No SOB Respiratory : pos Cough, No Sputum, No Dyspnea Gastrointestinal : No Nausea, No Vomiting, No Diarrhea, No Hematochezia, No Melena Genitourinary : No Dysuria, No Urinary Frequency, No Hematuria Musculoskeletal : No Myalgias Skin : No Skin Lesions, No rash Neuro : No Weakness, pos Numbness, No Paresthesias, No Dizziness, No Headache Psych : positive Anxiety, positive Depression, positive SI/HI All other systems reviewed and are negative PMFSH Past Medical History Attestation statement: The following information was validated with the patient. Source: old records reviewed Medical History Alcohol use disorder PTSD (post-traumatic stress disorder) Schizoaffective disorder, depressive type GERD (gastroesophageal reflux disease) YOSELIN (obstructive sleep apnea) COPD (chronic obstructive pulmonary disease) Social History Social History Household Members: None Housing: Apartment Do you presently have visiting nurse or other home services: No Alcohol intake: former Patient Tobacco Use Status: Never used Tobacco Smoked in Last 30 Days: No Second Hand Smoke Exposure: No Use of substances other than those prescribed or required for medical reasons: No Substance Use Type: Crack/Cocaine Advance Directives: No Advance Directives Information Provided: Yes service: Yes Sexual orientation: Straight/Heterosexual Physical Exam ED Vital Signs: Vital Signs - 24 hr 05/22/24 13:03 05/22/24 14:43 Temperature 98.6 F Pulse Rate 109 H 107 H Respiratory Rate 18 18 Blood Pressure 115/64 Pulse Oximetry 96 Oxygen Delivery Method Room Air BMI result Body Mass Index 34.0 Appearance: Alert. Oriented X3. No acute distress. Eyes: Pupils equal, round and reactive to light. ENT: Pharynx normal. Neck: Normal inspection. Neck supple. CVS: Normal heart rate and rhythm. Pulses normal. Respiratory: No respiratory distress. Breath sounds faint end exp wheeze Abdomen: Soft and nontender. Skin: Skin warm and dry. Normal skin color. Normal skin turgor. Extremities: No lower extremity edema. No calf ttp Neuro: Oriented X 3. No motor deficit. No sensory deficit. CN2-12 intact Course Course Course Narrative: This is a Rapid Medical Exam performed in triage by Alina Fan PA-C. Full HPI, ROS and PE to be performed by primary ED provider. 59 yo M w/PMHx ETOH use d/o, PTSD, Schizoaffective d/c presenting to the ED c/o URI sx w/dry cough x2 weeks, SOB, elevated BP at home & RUE/RLE numbness/weakness since last night (3AM). Admits to generalized fatigue, weakness, & lightheadedness PE: Dry cough appreciated, lungs CTA, no focal deficits. Ambulating with steady gait Plan: EKG, labs, CXR, Head CT Medications Administered Generic Name Dose Route Start Last Admin Trade Name Freq PRN Reason Stop Dose Admin Prednisone 40 mg 05/22/24 14:30 05/22/24 15:09 Prednisone 20 Mg Tablet PO 05/27/24 14:29 40 mg DAILY ARACELI Administration Discontinued Medications Generic Name Dose Route Start Last Admin Trade Name Freq PRN Reason Stop Dose Admin Albuterol/Ipratropium 3 ml 05/22/24 14:43 05/22/24 14:48 Albuterol/Iprat 2.5/0.5mg 3 Ml Ampul.Neb INHALE 05/22/24 14:44 3 ml ONCE ONE Administration Azithromycin 500 mg 05/22/24 14:30 05/22/24 15:11 Azithromycin 500 Mg Tablet PO 05/22/24 14:31 500 mg ONCE ONE Administration Benzonatate 200 mg 05/22/24 14:30 05/22/24 15:10 Benzonatate 100 Mg Capsule PO 05/22/24 14:31 200 mg ONCE ONE Administration Medical Decision Making Medical Decision Making MDM Narrative: 59 yo male with PMH of ETOH use, COPD not on home O2, PTSD, cocaine abuse, schizoaffective disorder here with c/o URI symptoms he does have faint wheeze and cough will start on steroid burst, zpak, obtain CXR and viral panel. I do not suspect stroke he has no symptoms and they are on and off for 2 weeks - CT head will suffice for bleed with cocaine abuse. He will be referred to CARE team for his SI/HI Differential Diagnosis Differential Diagnoses: The differential diagnosis associated with the presentation includes viral syndrome mental health/drug abuse doubt ICH/stroke has no symptoms and he denies weakness just felt tingling in ext Admission/Observation Consideration of admission/observation: Escalation of care including admission/observation considered physician observation started at 340pm pending CARE team he is medically cleared Consult Healthcare Provider Management of the patient was discussed with: Behavioral Health Provider Lab Data [facility] Lab Attestation statement: I reviewed the patient's lab results. 05/22/24 13:42 05/22/24 13:42 Labs: Lab Results 05/22/24 05/22/24 05/22/24 Range/Units 13:41 13:42 13:45 WBC 8.5 (4.8-10.8) X10*3/uL RBC 3.60 L (4.60-5.80) X10*6/uL Hgb 12.1 L (14.0-18.0) g/dl Hct 36.4 L (42.0-52.0) % MCV 101.1 H (80.0-98.0) fL MCH 33.6 H (27.0-33.0) pg MCHC 33.2 (31.0-36.0) g/dl RDW 12.7 (11.0-16.0) % Plt Count 285 (160-400) X10*3/uL MPV 8.8 L (9.4-12.4) fL Immature Gran % (Auto) 0.6 H (0.0-0.4) % Neut % (Auto) 72.3 (45-73) % Lymph % (Auto) 16.2 L (20-40) % [place] % (Auto) 6.5 (2-11) % Eos % (Auto) 4.0 (0-4) % Baso % (Auto) 0.4 (0-2) % Lymph # (Auto) 1.4 (1.2-4.9) X10*3/uL [place] # (Auto) 0.6 (0.1-1.2) X10*3/uL Eos # (Auto) 0.3 (0.0-0.4) X10*3/uL Baso # (Auto) 0.0 (0.0-0.2) X10*3/uL Abs Immat Gran (auto) 0.05 H (0.00-0.03) X10*3/uL Absolute Neuts (auto) 6.1 (2.0-8.3) x10*3/uL Absolute Nucleated RBC 0.000 (0.0-0.012) X10*3/uL Nucleated RBC % (auto) 0.0 (0.0-0.2) /100WBC PT 11.6 (10.9-12.4) SEC INR 1.0 (0.9-1.1) Sodium 141 (135-145) mmol/L Potassium 3.6 D (3.3-5.1) mmol/L Chloride 106 (96-108) mmol/L Carbon Dioxide 25 (22-29) mmol/L Anion Gap 14 (12-20) BUN 25 H (9-16) mg/dL Creatinine 1.45 H (0.5-1.4) mg/dL Estim Creat Clear Calc 55.9 Estimated GFR 49 Random Glucose 121 H (60-115) mg/dL Calcium 9.1 D (8.4-10.2) mg/dL Magnesium 2.1 (1.6-2.6) mg/dL Total Bilirubin 0.4 (0.0-1.0) mg/dL Direct Bilirubin 0.1 (0.0-0.5) mg/dL AST 37 (5-37) U/L ALT 36 (0-40) U/L Alkaline Phosphatase 89 (39-117) U/L Troponin I High Sens 3.2 (<3.5-35.0) ng/L Total Protein 7.3 (6.5-8.0) g/dL Albumin 3.9 (3.5-5.0) g/dL Urine Color Dark Yellow Urine Appearance Cloudy Urine pH 5.5 (5.0-9.0) Ur Specific [place] 1.025 (1.005-1.025) Urine Protein Trace (Neg-Trace) mg/dL Urine Glucose (UA) Negative (Negative) mg/dL Urine Ketones Trace (Negative) mg/dL Urine Blood Small (1+) H (Negative) Urine Nitrite Negative (Negative) Ur Leukocyte Esterase Large (3+) H (Negative) Urine RBC 3-5 H (0-2) /HPF Urine WBC >50 H (0-5) /HPF Ur Squamous Epith Cells 0-2 (0-2) /HPF Urine Bacteria None Seen (None Seen) Hyaline Casts 3-5 (0-2) /LPF Urine Opiates Screen Not Detected (Not Detect) Ur Buprenorphine Scrn Not Detected (Not Detect) ng/mL Ur Oxycodone Screen Not Detected (Not Detect) ng/mL Urine Methadone Screen Not Detected (Not Detect) ng/mL Urine Fentanyl Screen Not Detected (Not Detect) Ur Barbiturates Screen Not Detected (Not Detect) Ur Phencyclidine Scrn Not Detected (Not Detect) Ur Amphetamines Screen Not Detected (Not Detect) U Benzodiazepines Scrn Not Detected (Not Detect) Urine Cocaine Screen POSITIVE H (Not Detect) U Marijuana (THC) Screen Not Detected (Not Detect) Influenza Type A (PCR) NEGATIVE (Negative) Influenza Type B (PCR) NEGATIVE (Negative) RSV RNA Qual (PCR) NEGATIVE (Negative) SARS-CoV-2 RNA (RT-PCR) NEGATIVE (Negative) Independent Interpretation I performed an independent interpretation of an: EKG, Plain X-Ray (normal ) and CT Scan (no ICH) Interpretation: Rate: 102 Rhythm: sinus tach [place]:normal Normal P waves. Normal CHRIS. Normal QRS complex. ST T wave : normal no DAIJA qTC: 450 prior studies: no acute ischemia The study has been interpreted contemporaneously by me. . Radiology Impression Discussion of test interpretation with radiology: I have reviewed the radiologist's reading. External Record Review External record reviewed: Outpatient record Social Determinants Patient?s care significantly limited by Social Determinants of Health including: Problems related to primary support group Discharge Plan Discharge Clinical Impression: Schizoaffective disorder, depressive type, Bronchitis, Cocaine abuse Patient Disposition: Still a Patient Instructions: Acute Bronchitis (ED), Schizoaffective Disorder (ED) Prescriptions: No Action amlodipine 2.5 mg Tablet 2.5 mg PO DAILY Qty: 30 0RF Protocol: Hold for SBP< HOLD for SBP < : 90 risperidone 2 mg Tablet 2 mg PO BID Qty: 60 0RF diphenhydramine HCl 25 mg Capsule 50 mg PO BEDTIME Qty: 30 0RF divalproex 500 mg Tablet Extended Release 24 Hr 1,500 mg PO BEDTIME Qty: 90 0RF nicotine 21 mg/24 hr Patch 24 Hour 21 mg transdermal DAILY PRN (Reason: smoking cessation) Qty: 14 0RF gabapentin 300 mg Capsule 300 mg PO DAILY Qty: 30 0RF folic acid 1 mg Tablet 1 mg PO DAILY Qty: 30 0RF albuterol sulfate [Ventolin HFA] 90 mcg/actuation Hfa Aerosol Inhaler 1 puff inhalation RQ4H PRN (Reason: wheezing/sob) 30 Days Qty: 1 0RF cholecalciferol (vitamin D3) 25 mcg (1,000 unit) Tablet 50 mcg PO DAILY Qty: 30 0RF thiamine mononitrate (vit B1) 100 mg Tablet 100 mg PO DAILY Qty: 30 0RF guaifenesin [Mucinex] 600 mg Tablet Extended Release 12hr 600 mg PO BID Qty: 30 0RF Trelegy Ellipta 100-62.5-25 mcg Blister With Device 1 inh inhalation RDAILY Qty: 1 0RF Print Language: Beninese
[2024-05-22 13:03] VITALS: BP 115/64; PULSE 109; RESP 18; TEMP 37; O2SAT 96; BMI 34.0
--- NOTE | 2024-05-22 13:09 | ECG_ITS ---
Test Reason : WEAKNESS Blood Pressure : */* mmHG Vent. Rate : 102 BPM Atrial Rate : 102 BPM P-R Int : 192 ms QRS Dur : 70 ms QT Int : 346 ms P-R-T Axes : 35 12 23 degrees QTcB Int : 450 ms Sinus tachycardia Otherwise normal ECG When compared with ECG of 10-May-2023 17:50, No significant change was found Referred By: Alina Fan Electronically Signed By: Hamilton Prieto
[2024-05-22 13:51] LABS: MANUAL DIFF FLAG NO
[2024-05-22 13:53] LABS: Appearance Urine Cloudy; Color Urine Dark Yellow; Glucose Urine UA Negative (Negative); Leukocyte Esterase Urine Large (3+) (Negative); Nitrite Urine Negative (Negative); PH 5.5 (5.0-9.0); Specific Gravity - Urine 1.025 (1.005-1.025); UMIC TRIGGER UACC YES; Urine Blood Small (1+) (Negative); Urine Ketones Trace mg/dL (Negative); Urine Protein Trace mg/dL (Neg-Trace)
[2024-05-22 13:54] LABS: Basophils Percent Auto 0.4 % (0-2); Eosinophils Absolute Auto 0.3 X10*3/uL (0.0-0.4); Hematocrit 36.4 % (42.0-52.0); Hemoglobin 12.1 g/dl (14.0-18.0); Imm Gran Abs Auto 0.05 X10*3/uL (0.00-0.03); Imm Gran Pct Auto 0.6 % (0.0-0.4); Lymphocytes Absolute Auto 1.4 X10*3/uL (1.2-4.9); Lymphocytes Percent Auto 16.2 % (20-40); Mean Corpuscular HGB Conc 33.2 g/dl (31.0-36.0); Mean Corpuscular Hemoglobin 33.6 pg (27.0-33.0); Mean Corpuscular Volume 101.1 fL (80.0-98.0); Mean Platelet Volume 8.8 fL (9.4-12.4); Monocytes Absolute Auto 0.6 X10*3/uL (0.1-1.2); Monocytes Percent Auto 6.5 % (2-11); Neutrophils Absolute Auto 6.1 x10*3/uL (2.0-8.3); Neutrophils Percent Auto 72.3 % (45-73); Platelet Count 285 X10*3/uL (160-400); Red Cell Distribution Width 12.7 % (11.0-16.0); White Blood Count 8.5 X10*3/uL (4.8-10.8)
[2024-05-22 13:58] LABS: Prothrombin Time 11.6 SEC (10.9-12.4)
[2024-05-22 14:05] LABS: Alanine Aminotransferase 36 U/L (0-40); Albumin Level 3.9 g/dL (3.5-5.0); Alkaline Phosphatase 89 U/L (39-117); Anion Gap 14 (12-20); Aspartate Amino Transferase 37 U/L (5-37); Bilirubin Direct 0.1 mg/dL (0.0-0.5); Bilirubin Total 0.4 mg/dL (0.0-1.0); Blood Urea Nitrogen 25 mg/dL (9-16); Calcium 9.1 mg/dL (8.4-10.2); Carbon Dioxide 25 mmol/L (22-29); Chloride 106 mmol/L (96-108); Creatinine Clr Calc Pharmacy 55.9; Estimated Glomerular Filt Rate 49; Glucose Random 121 mg/dL (60-115); Magnesium 2.1 mg/dL (1.6-2.6); Potassium 3.6 mmol/L (3.3-5.1); Sodium 141 mmol/L (135-145); Total Protein 7.3 g/dL (6.5-8.0)
[2024-05-22 14:11] LABS: Amphetamine Screen Urine Not Detected (Not Detect); Bacteria Urine None Seen (None Seen); Barbiturates, Urine Not Detected (Not Detect); Benzodiazepines Screen Urine Not Detected (Not Detect); Buprenorphine Scr Not Detected (Not Detect); Cannabinoid Screen Urine Not Detected (Not Detect); Cocaine Screen Urine POSITIVE (Not Detect); Fentanyl, urine Not Detected (Not Detect); Methadone Screen, Urine Not Detected (Not Detect); Opiate Screen Urine Not Detected (Not Detect); Oxycodone Screen Urine Not Detected (Not Detect); Phencyclidine Screen Urine Not Detected (Not Detect); Squamous Epithelial Cell Urine 0-2 /HPF (0-2); UACC Culture Trigger YES; WBC Urine >50 /HPF (0-5)
[2024-05-22 14:12] LABS: Troponin-I High Sensitivity 3.2 ng/L (<3.5-35.0)
--- OUTSIDE RECORDS SUMMARY | 2024-05-22 14:23 | XMS_ITS | Encounter Summary ---
Author Organization [employer] Address [address] [place] [address] Care Team Providers Care Grant Coordinator Name Role Phone Florida Murcia MD Primary Care Provider [phone] Vicki Santos Unavailable Unavailable Reason for Visit * Reason Onset Date Comments Durable Medical Equipment 03/09/2024 Encounter Details Date Type Department Care Team (Late st Contact Info) Description 03/09/2024 Telephone [facility] MEDICAL [address] [place] [address] Florida Murcia MD [address] [place] [address] Durable Medical Equipment Social History Tobacco Use Types Packs/Day Years Used Date Smoking Tobacco: Never Smokeless Tobacco: Never Alcohol Use Standard Drinks/Week Comments Not Currently 0 (1 standard drink = 0.6 oz pur e alcohol) Alcohol Answer Date Recorded How often do you have a drink containing alcohol ? 1 03/04/2023 How many drinks containing a lcohol do you have on a typical day when you are drinking? 0 03/04/2023 How often do you have six or more drinks on one occasion? 0 03/04/2023 Housing Stability Answer Date Recorded What is your housing situation today? I have housing today, but I am worried about losing housing in the future 03/04/[address] you li ve. Do you have problems with any of the following? Not on file 03/04/2023 Food Insecurity Answer Date Recorded Within the past 12 months, y ou worried that your food would run out before you got money to buy more: Sometimes True 2022 Within the past 12 months,th e food you bought just didn't last and you didn't have enough money to get more: Sometimes True 03/04/2023 Transportation Answer Date Recorded In the past 12 months, has l ack of transportation kept you from medical appts, meetings, work or from getting things needed for daily living? I am not sure 03/04/2023 Intimate Partner Violence Answer Date R ecorded Within the last year, have y ou been afraid of your partner or ex-partner? 2 03/04/2023 Within the last year, have y ou been humiliated or emotionally abused in other ways by your partner or ex-partner? 2 Within the last year, have y ou been kicked, hit, slapped, or otherwise physically hurt by your partner or ex-partner? 2 03/04/2023 Within the last year, have y ou been raped or forced to have any kind of sexual activity by your partner or ex-partner? 2 03/04/2023 Utilities Answer Date Recorded In the past 12 months, has t he [employer], [employer], oil or water company threatened to shut off services in your home? I am not sure 03/04/2023 Sex and Gender Information Value Date Recorded Sex Assigned at Male 10/01/2022 8:47 AM EDT Legal Sex Male 5:35 PM EDT Gender Identity Male 10/01/2022 8:47 AM EDT Sexual Orientation Straight 10/01/2022 8: 47 AM EDT documented as of this encounter Miscellaneous Notes * Telephone Encounter - Sarai Barraza - 03/10/2024 8:38 AM EST We have faxed a BP cuff to [facility] on 02.25.24. To MICHAEL to consider a written order for a cane. * Telephone Encounter - Harper Davila - 03/09/2024 3:39 PM EST [facility] called, reports pt requests blood pressure cuff and cane prescriptions Cb# [phone] Ext [id number] documented in this encounter Plan of Treatment Upcoming Encounters Date Type Department Care Team (Late st Contact Info) Description 06/02/2024 4:00 PM EDT Telemedicine [facility] MEDICAL [address] [place] [address] Florida Murcia MD [address] [facility] [place] [id number] documented as of this encounter Visit Diagnoses Not on filedocumented in this encounter Care Teams Grant Coordinator Relationship Specialty Start Date End Date Florida Murcia MD [address] [place] [address] PCP - General Family Medicine 12/27/22 Vicki Santos Community Health Worker 03/04/23 documented as of this encounter
--- OUTSIDE RECORDS SUMMARY | 2024-05-22 14:23 | XMS_ITS | Encounter Summary ---
Author Organization [employer] Address [address] [place] [address] 7 [place] [address] Care Team Providers Care Director Of Content And Programming Name Role Phone Florida Murcia MD Primary Care Provider [phone] Vicki Santos Unavailable Unavailable Reason for Visit * Reason Onset Date Comments RTT 05/13/2024 Cough 05/13/2024 Nasal Congestion 05/13/2024 Hypertension 05/13/2024 Encounter Details Date Type Department Care Team (Late st Contact Info) Description 05/13/2024 Telephone [facility] MEDICAL [address] [place] [address] Florida Murcia MD [address] [place] [address] RTT; Cough; Nasal Congestion; Hypertension Social History Tobacco Use Types Packs/Day Years [...] the past 12 months, has t he [employer], gas, oil or water [employer] threatened to shut off services in your home? I am not sure 03/04/2023 Sex and Gender Information Value Date Recorded Sex Assigned at Male 10/01/2022 8:47 AM EDT Legal Sex Male 5:35 PM EDT Gender Identity Male 10/01/2022 8:47 AM EDT Sexual Orientation Straight 10/01/2022 8: 47 AM EDT documented as of this encounter Miscellaneous Notes * Telephone Encounter - Kathe Grant RN - 05/14/2024 2:44 PM EST Spoke with patient who reports continued illness. Symptoms are productive cough and congestion. Afebrile.Requests antibiotic. Advised will need OV for eval. Scheduled for OV Friday05/17/24 at 2:30 pm. Plan: Rest Push fluids Monitor temp Call irrigation teacher provider or go to ER for any worsening symptoms prior. Patient agrees to plan. * Telephone Encounter - Tonja Campbell - 05/14/2024 9:37 AM EST Patient called Please call back * Telephone Encounter - Nakita Davis LPN - 05/14/2024 9:13 AM EST Left message for pt to call back. * Telephone Encounter - Tonja Campbell - 05/14/2024 8:48 AM EST Patient called Please call back * Telephone Encounter - Octavia Taylor RN - 05/14/2024 8:37 AM EST Call placed to patient. LMOM to return call. * Telephone Encounter - Tonja Campbell - 05/14/2024 8:07 AM EST Patient called. Patient stated he had a rough night and believes he will be going to urgent care. Patient would like to speak to nursing before he goes. * Telephone Encounter - Kathe Grant RN - 05/13/2024 5:15 PM EST Spoke with patient. Symptoms began at midnight. They are cough, lightheaded, weakness. He has takenDayquil without much relief. Offered appointment tomorrow. Pt. declined due to transportation. Patient said Dr. Murcia usually prescribes an antibiotic. Advised patient given his symptoms began less than 24 hours ago, recommend: Rest. Push Fluids. Tylenol/Advil prn. Try Dayquil again. If symptoms worsen in the night such as difficulty breathing, go to ER for eval. Call in am with condition update. Patient agreeable to plan. * Telephone Encounter - Tonja Campbell - 05/13/2024 4:17 PM EST Patient calling reporting sick symptoms. Symptom onset date: 05/12 Symptoms include: Chills,cough, shortness of breath, and congestion or runny nose Patient denies sick contacts. Testing performed at home: has not tested No appointment scheduled. Telephone encounter routed to nursing triage for review; nursing to review and sign encounter if timeline is appropriate or modify plan if clinically necessary. Preferred phone number confirmed, ending in [phone]. If necessary, patient confirms that it is ok fornursing to leave detailed voicemail on this number. Hypertension And light headed * Telephone Encounter - Gayathri Deal - 05/13/2024 3:21 PM EST Patient called (again) stating he is disturbed that he has not received a call from nursing after 6 hours, it should definitely be repremanded after 6 hours, if you could send an email to MICHAEL that this cough is killing me and I feel terrible, I really need someone to give me a call back. Nursing unavailable to take call. * Telephone Encounter - Gayathri Deal - 05/13/2024 8:36 AM EST Patient called stating it was imperative and detrimental that I speak to MICHAEL urgently and stated symptoms began last night (05/12/24) including: I need to talk to MICHAEL about my blood pressure and virus that I have, I need a prescription for it, upper respiratory, chest, spitting up mucus, congestion, no fever, has not taken a test for strep orCOVID, I may have to go to urgent care. Patient booked telehealth appointment with MICHAEL on 06/02/24. Patient would like a call back with advice, okay to leave detailed message on voicemail. Patient updated phone number to new number he has. Thank you! documented in this encounter Plan of Treatment Upcoming Encounters Date Type Department Care Team (Late st Contact Info) Description 06/02/2024 4:00 PM EDT Telemedicine [facility] MEDICAL [address] [facility] [place] [address] Florida Murcia MD [address] [place] [address] documented as of this encounter Visit Diagnoses Not on filedocumented in this encounter Care Teams Director Of Content And Programming Relationship Specialty Start Date End Date Florida Murcia MD [address] [place] [address] PCP - General Family Medicine 12/27/22 Vicki Santos Community Health Worker 03/04/23 documented as of this encounter
--- OUTSIDE RECORDS SUMMARY | 2024-05-22 14:23 | XMS_ITS | Encounter Summary ---
Author Organization [employer] Address [address] [place] [address] [address] [address] Care Team Providers Care Sr. Unix System Administrator Name Role Phone Florida Murcia MD Primary Care Provider [phone] Vicki Santos Unavailable Unavailable Encounter Details Date Type Department Care Team (Latest Contact Info) Description 10/13/2019 Abstract [facility] Dental, Provider, DDS Social History Tobacco Use Types Packs/Day Years Used Date Smoking Tobacco: Never Assessed Sex and Gender Information Value Date Recorded Sex Assigned at Male 10/01/2022 8:47 AM EDT Legal Sex Male 5:35 PM EDT Gender Identity Male 10/01/2022 8:47 AM EDT Sexual Orientation Straight 10/01/2022 8: 47 AM EDT documented as of this encounter Plan of Treatment Upcoming Encounters Date Type Department Care Team (Late st Contact Info) Description 06/02/2024 4:[address] [facility] MEDICAL [address] [place] [address] Florida Murcia MD [address] [place] [address] documented as of this encounter Visit Diagnoses Not on filedocumented in this encounter Care Teams Sr. Unix System Administrator Relationship Specialty Start Date End Date Florida Murcia MD [address] [place] [address] PCP - General Family Medicine 12/27/22 Vicki Santos Community Health Worker 03/04/23 documented as of this encounter
--- OUTSIDE RECORDS SUMMARY | 2024-05-22 14:23 | XMS_ITS | Encounter Summary ---
Author Organization [employer] Address [address] [place] [address] 7 [place] [address] Care Team Providers Care Title Manager Name Role Phone Florida Murcia MD Primary Care Provider [phone] Vicki Santos Unavailable Unavailable Reason for Visit * Reason Onset Date Comments Vomiting 04/26/2024 Cough 04/26/2024 Encounter Details Date Type Department Care Team (Late st Contact Info) Description 04/26/2024 Telephone [facility] MEDICAL [address] [place] [address] Florida Murcia MD [address] [place] [address] Vomiting; Cough Social History Tobacco Use Types Packs/Day Years [...] the past 12 months, has t he [employer], [employer], oil or water company threatened to shut [...] encounter Miscellaneous Notes * Telephone Encounter - Florida Murcia MD - 04/27/2024 8:53 AM EST RX sent. * Telephone Encounter - Hannah Lilly LPN - 04/26/2024 2:50 PM EST Call received from patient. Patient states he had to call an ambulance yesterday and go to [facility] due to vomiting and diarrhea. Patient states he left the hospital without being seen due to the amount of people in the ED. Patient states he has stopped vomiting as of 5am today. Patient has been able totolerate popsicles. Patient has a friend that will bring him jello and watermelon. Patient is reques ting Rx for Zofran for nausea. Unable to locate any information of hospital visit at [facility] via web pages. Encounter to provider to review/send Rx if in agreement. * Telephone Encounter - Gayathri Deal - 04/26/2024 2:14 PM EST Patient calling to check that his message from this morning was received. Patient would like a callback at [phone]. Okay to leave detailed message. TE sent to nursing. Please advise. Thank you! * Telephone Encounter - Tonja Campbell - 04/26/2024 9:44 AM EST Patient calling reporting sick symptoms. Symptom onset date: 04/24 Symptoms include: cough, congestion or runny nose, and nausea or vomiting Patient denies sick contacts. Testing performed at home: has not tested No appointment scheduled. Telephone encounter routed to nursing triage for review; nursing to review and sign encounter if timeline is appropriate or modify plan if clinically necessary. Preferred phone number confirmed, ending in [phone]. If necessary, patient confirms that it is ok fornursing to leave detailed voicemail on this number. Patients blood pressure is 140/90 documented in this encounter Plan of Treatment Upcoming Encounters Date Type Department Care Team (Late st Contact Info) Description 06/02/2024 4:00 PM EDT Telemedicine [facility] MEDICAL [address] [place], [place] [phone] Florida Murcia MD [address] [place], [place] documented as of this encounter Visit Diagnoses Diagnosis Nausea and vomiting, unspecified vomiting type- Primary documented in this encounter Care Teams Title Manager Relationship Specialty Start Date End Date Florida Murcia MD [address] [place] [address] PCP - General Family Medicine 12/27/22 Vicki Santos Community Health Worker 03/04/23 documented as of this encounter
--- OUTSIDE RECORDS SUMMARY | 2024-05-22 14:23 | XMS_ITS | Encounter Summary ---
Author Organization [employer] Address [address] [place] [address] Care Team Providers Care Tip Cutter Name Role Phone Florida Murcia MD Primary Care Provider [phone] Vicki Santos Unavailable Unavailable Encounter Details Date Type Department Care Team (Late st Contact Info) Description 05/22/2024 Telephone [facility] MEDICAL [address] [place] [address] Hanna Whiting FNP [address] [place] [address] Social History Tobacco Use Types Packs/Day Years [...] the past 12 months, has t he electric, gas, oil or water company threatened to shut [...] encounter Miscellaneous Notes * Telephone Encounter - LIZANDRO Rosario - 05/22/2024 7:00 AM EST Patient ill with RSV and had been ill for two weeks, patient got a little bit better but then went to the hospital and got worse. He is using his albuterol. Will prescribe azithromycin for managementfor treatment of secondary infection. Denies fever, using cough medication. Advised patient that ifhe worsens he should be evaluated over the weekend at urgent care. Advised to call while clinic is open today if medication issues. Patient in agreement. Limit setting regarding importance of answering triage questions. Urged patient to come in for a visit on Friday if not improving. Reinforced that RSV is a virus and the antibiotic is being used to treat a suspected secondary infection. Audible c britneyghing throughout phone call today documented in this encounter Plan of Treatment Upcoming Encounters Date Type Department Care Team (Late st Contact Info) Description 06/02/2024 4:00 PM EDT Telemedicine [facility] MEDICAL [address] [place] [address] Florida Murcia MD [address] [place], [place] documented as of this encounter Visit Diagnoses Not on filedocumented in this encounter Care Teams Tip Cutter Relationship Specialty Start Date End Date Florida Murcia MD [address] [place] [address] PCP - General Family Medicine 12/27/22 Vicki Santos Community Health Worker 03/04/23 documented as of this encounter
--- OUTSIDE RECORDS SUMMARY | 2024-05-22 14:23 | XMS_ITS | Clinical Summary ---
Author Organization [facility] Address [address] [place] [address] Care Team Providers Care Livestock Buyer Name Role Phone Unavailable Primary Care Provider Unavailabl e Social History Tobacco Use Types Packs/Day Years Used Date Smoking Tobacco: Never Assessed Sex and Gender Information Value Date Recorded Sex Assigned at Not on file Legal Sex Male 9:50 AM EST Gender Identity Not on file Sexual Orientation Not on file Plan of Treatment Health Maintenance Due Date Last Done Comments DTaP,Tdap,and Td Vaccines (1 - Tdap) 1982 Pneumococcal Vaccine: 50+ Ye ars (1 of 1 - PCV) 2013 Zoster Vaccines (1 of 2) 2013 COVID-19 Vaccine ( - 2023-2 5 season) 2023 Influenza Vaccine (#1) 2023 RSV Immunization Patients 60 + Years Old (1 - 1-dose 75+ series) 2038 HIB Vaccines Aged Out No longer eligi ble based on patient's age to complete this topic HPV Vaccines Aged Out No longer eligi ble based on patient's age to complete this topic Hepatitis A Vaccines Aged Out No long er eligible based on patient's age to complete this topic Hepatitis B Vaccines Aged Out No long er eligible based on patient's age to complete this topic IPV Vaccines Aged Out No longer eligi ble based on patient's age to complete this topic MMR Vaccines Aged Out No longer eligi ble based on patient's age to complete this topic Meningococcal ACWY Vaccine Aged Out N o longer eligible based on patient's age to complete this topic Meningococcal B Vacine Aged Out No lo nger eligible based on patient's age to complete this topic Pneumococcal Vaccine: Pediat rics (0 to 5 Years) and At-Risk Patients (6 to 64 Years) Aged Out No longer eligible b ased on patient's age to complete this topic RSV Immunization Patients Un amelia 20 months Aged Out No longer eligible b ased on patient's age to complete this topic Varicella Vaccines Aged Out No longer eligible based on patient's age to complete this topic
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
--- OUTSIDE RECORDS SUMMARY | 2024-05-22 14:23 | XMS_ITS | Encounter Summary ---
Author Organization [employer] Address [address] [facility] [address] [place] [address] Care Team Providers Care Membership Solicitor Name Role Phone Florida Murcia MD Primary Care Provider [phone] Vicki Santos Unavailable Unavailable Encounter Details Date Type Department Care Team (Late st Contact Info) Description 05/20/2023 Orders Only [place] [facility] [address] [place] [address] Florida Murcia MD [address] [place] [address] Social History Tobacco Use Types Packs/Day Years [...] Info) Description 06/02/2024 4:00 PM EDT Telemedicine [facility] MEDICAL [address] [place] [address] Florida Murcia MD [address] [place] [address] documented as of this encounter Procedures Procedure Name Priority Date/Time Associated Diagnosis Comments CT CHEST WO CONTRAST Routine 05/13/2023 1:09 PM EST ECG 12-LEAD Routine 05/10/2023 1:09 PM EST ECG 12-LEAD Routine 05/08/2023 1:07 PM EST XR CHEST 2 VIEWS Routine 05/07/2023 1:06 PM EST documented in this encounter Results * CT Chest w/o Contrast (05/13/2023 1:09 PM EST) Anatomical Region Laterality Modality Body, Chest Computed Tomogra phy us Florida Murcia MD IMG CT PROCEDURES Final Result * ECG 12 lead (05/10/2023 1:09 PM EST) Result Tessie Murcia MD ECG ORDERABLES Final Result * ECG 12 lead (05/08/2023 1:07 PM EST) us Florida Murcia MD ECG ORDERABLES Final Result * XR Chest 2 Views (05/07/2023 1:06 PM EST) Anatomical Region Laterality Modality Chest Radiographic Pao ging Result Tessie Murcia MD IMG XR PROCEDURES Final Result documented in this encounter Visit Diagnoses Not on filedocumented in this encounter Care Teams Membership Solicitor Relationship Specialty Start Date End Date Florida Murcia MD [address] [place] [address] PCP - General Family Medicine 12/27/22 Vicki Santos Community Health Worker 03/04/23 documented as of this encounter
--- OUTSIDE RECORDS SUMMARY | 2024-05-22 14:23 | XMS_ITS | Encounter Summary ---
Author Organization [employer] Address [address] [facility] 7 [place] [address] Care Team Providers Care Bander And Cellophaner Machine Name Role Phone [place] Murcia MD Primary Care Provider [phone] Vicki Santos Unavailable Unavailable Reason for Visit * Reason Onset Date Comments FYI 02/24/2024 blood pressure reading 02/24/2024 Encounter Details Date Type Department Care Team (Late st Contact Info) Description 02/24/2024 Telephone [facility] MEDICAL [address] [place] [address] Florida Murcia MD 70 [place] [address] FYI; blood pressure reading Social History Tobacco Use Types Packs/Day Years [...] the past 12 months, has t he [employer] [facility], [employer], oil or water [employer] threatened to shut off services in your home? I am not sure 03/04/2023 Sex and Gender Information Value Date Recorded Sex Assigned at Male 10/01/2022 8:47 AM EDT Legal Sex Male 5:35 PM EDT Gender Identity Male 10/01/2022 8:47 AM EDT Sexual Orientation Straight 10/01/2022 8: 47 AM EDT documented as of this encounter Miscellaneous Notes * Telephone Encounter - Shruthi Lopez - 02/25/2024 2:37 PM EST Script for b/p monitor done * Telephone Encounter - Sarai Barraza - 02/24/2024 11:16 AM EST To MICHAEL to order new BP cuff. FYI to PS * Telephone Encounter - Tonja Campbell - 02/24/2024 9:42 AM EST Patient called Patient stated [facility] sent out someone to take his blood pressure Readings are as follows Blood pressure is 138/96 Heart rate 76 and 96 pulse Patient also stated his blood pressure reader is not working and would like to know how to get a new one documented in this encounter Plan of Treatment Upcoming Encounters Date Type Department Care Team (Late st Contact Info) Description 06/02/2024 4:00 PM EDT Telemedicine [facility] MEDICAL [address] [place] [address] Florida Murcia MD [address] [facility] [place] [address] documented as of this encounter Visit Diagnoses Not on filedocumented in this encounter Care Teams Bander And Cellophaner Machine Relationship Specialty Start Date End Date Florida Murcia MD [address] [facility] [place] [address] PCP - General Family Medicine 12/27/22 Vicki Santos Community Health Worker 03/04/23 documented as of this encounter
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
--- OUTSIDE RECORDS SUMMARY | 2024-05-22 14:23 | XMS_ITS | Encounter Summary ---
Author Organization [employer] Address [address] [facility] 7 [place] [address] Care Team Providers Care Family Resource Specialist Name Role Phone [place] Murcia MD Primary Care Provider [phone] Vicki Santos Unavailable Unavailable Reason for Visit * Reason Onset Date Comments hospital discharge, obtain medical records 05/17 tested positive for RSV 05/17/2024 Encounter Details Date Type Department Care Team (Late st Contact Info) Description 05/17/[address] [facility] MEDICAL [address] [place] [address] Florida Murcia MD [address] [place] [address] hospital discharge, obtain medical records; tested positive for RSV Social History Tobacco Use Types Packs/Day Years [...] the past 12 months, has t he [employer], [employer], oil or water [email or web address] threatened to shut off services in your home? I am not sure 03/04/2023 Sex and Gender Information Value Date Recorded Sex Assigned at Male 10/01/2022 8:47 AM EDT Legal Sex Male 5:35 PM EDT Gender Identity Male 10/01/2022 8:47 AM EDT Sexual Orientation Straight 10/01/2022 8: 47 AM EDT documented as of this encounter Miscellaneous Notes * Telephone Encounter - Sigrid Romero LPN - 05/17/2024 1:37 PM EST Spoke with patient. Patient reports he is still feeling bad reviewed with patient RSV treatment is self care at home with OTC. Patient reports due guzman flow issues he is unable to purchase OTC medications. Patient is hoping a script for something can be sent in. Advised antibiotics are not used for RSV treatment. Patient is aware but is hoping for some kind of cold medication. * Telephone Encounter - Sigrid Romero LPN - 05/17/2024 11:00 AM EST Please obtain records. * Telephone Encounter - Gayathri Deal - 05/17/2024 10:49 AM EST Patient called stating he went to [facility] urgent care in [place] last Friday (05/14/24) and was tested positive for RSV, I've been battling with this all weekend, I'm wondering if my appointment for today (05/17/24) is still on, I need to speak to 's nurse to see if I can get a prescription. Patient hung up phone call before verifying further information or symptoms. Patient has two upcoming appointments (today 05/17/24 and 06/02/24) - unsure if they are for the sameissues. Patient states he would like a call from nursing with advice (ideally before appointment), okay to leave detailed message on voicemail. Thank you! TE sent to nursing to triage TE sent to medical records to obtains hospital records documented in this encounter Plan of Treatment Upcoming Encounters Date Type Department Care Team (Late st Contact Info) Description 06/02/2024 4:00 PM EDT Telemedicine [facility] MEDICAL [address] [place] [address] Florida Murcia MD [address] [place] [address] documented as of this encounter Visit Diagnoses Not on filedocumented in this encounter Care Teams Family Resource Specialist Relationship Specialty Start Date End Date Florida Murcia MD [address] [place] [address] PCP - General Family Medicine 12/27/22 Vicki Santos Community Health Worker 03/04/23 documented as of this encounter
--- OUTSIDE RECORDS SUMMARY | 2024-05-22 14:23 | XMS_ITS | Encounter Summary ---
Author Organization [employer] Address [address] [place] [address] [address], [place] [address] Care Team Providers Care Biology Manager Name Role Phone Florida Murcia MD Primary Care Provider [phone] Vicki Santos Unavailable Unavailable Encounter Details Date Type Department Care Team (Latest Contact Info) Description 06/29/2018 Abstract [facility] Dental, Provider, DDS Social [...] Info) Description 06/02/2024 4:00 PM EDT Telemedicine [facility] MEDICAL [address] [place] [address] Florida Murcia MD [address] [place] [address] documented as of this encounter Visit Diagnoses Not on filedocumented in this encounter Care Teams Biology Manager Relationship Specialty Start Date End Date Florida Murcia MD [address] [place] [address] PCP - General Family Medicine 12/27/22 Vicki Santos Community Health Worker 03/04/23 documented as of this encounter
[2024-05-22 14:41] LABS: Influenza A PCR NEGATIVE (Negative); Influenza B PCR NEGATIVE (Negative); Resp Syncy Virus RNA Qual PCR NEGATIVE (Negative); SARS COV2 PCR INHOUSE NEGATIVE (Negative)
[2024-05-22 14:43] VITALS: PULSE 107; RESP 18; O2SAT 94
[2024-05-22] MEDS: Albuterol/Iprat 2.5/0.5MG 3 ML AMPUL.NEB INHALE ×2 (14:48→19:16)
[2024-05-22] MEDS: predniSONE 20 MG TABLET 40 MG PO (15:09)
[2024-05-22] MEDS: Benzonatate 100 MG CAPSULE 200 MG PO (15:10)
[2024-05-22] MEDS: Azithromycin 500 MG TABLET PO (15:11)
--- NOTE | 2024-05-22 16:30 | PC.NURSE ---
CARE team at bedside to evaluate pt
--- NOTE | 2024-05-22 16:41 | PC.NURSE ---
at approx [phone] pt began yelling at [facility] and posturing at him regarding needing his glasses. pt making false statements about having asked [facility] several times, hours ago for these glasses. pt standing up from bed, making fists at his sides stating they are my prescription glasses you can't keep those from me! . This RN intervened at this time informing the pt that his glasses will be retrieved, pt continued to making delusional statements stating the look a like copy technician mother michele can go report back to [facility] and tell him about it. . This RN continued to attempt to de-escalate the pt. once given his glasses pt continues to make threatening statements about not liking that copy technician look a like mother michele and not tolerating him
--- NOTE | 2024-05-22 18:03 | PC.NURSE ---
pt placed on a section 12
[2024-05-22] MEDS: Acetaminophen 325 MG TABLET 975 MG PO (18:08)
--- NOTE | 2024-05-22 18:20 | MHC.CARE ---
Patient will be IPLOC. Section 12a placed in chart for safety.
[2024-05-22 18:38] VITALS: BP 122/78; PULSE 104; RESP 18; TEMP 37.2; O2SAT 94
--- NOTE | 2024-05-22 19:11 | PC.NURSE ---
This RN assumed pt care @ 1900. Pt a&ox4, no signs of distress. Pt requesting breathing tx Provider notified and aware. New med orders entered. Pt notified provider placed breathing tx order. Plan of care ongoing.
[2024-05-22 19:16] VITALS: PULSE 104; RESP 18; O2SAT 95
--- NOTE | 2024-05-22 23:52 | PC.NURSE ---
Pt requesting psych meds. Pt states he has too many meds to remember and [facility] pharmacy should be called. This RN explained [facility] closed at this time so we will call in the am. Pt verbalizes understanding. Plan of care ongoing.
[2024-05-22 23:53] VITALS: BP 107/61; PULSE 84; RESP 18; TEMP 36.5; O2SAT 96
[2024-05-23] MEDS: guaiFEN/Codeine SF 200/20/10ML 10 ML LIQUID PO (03:48)
[2024-05-23 06:11] VITALS: BP 127/61; PULSE 99; RESP 18; TEMP 37.1; O2SAT 96
--- NOTE | 2024-05-23 07:00 | PC.NURSE ---
Report taken from Marcelina Reed RN
--- NOTE | 2024-05-23 08:29 | PC.NURSE ---
Awaiting missing 09:00 Azithromycin per pharmacy at this time.
[2024-05-23] MEDS: LORazepam 1 MG TABLET 2 MG PO (09:01)
[2024-05-23] MEDS: Azithromycin 250 MG TABLET PO (09:01)
[2024-05-23] MEDS: risperiDONE 2 MG TABLET PO (09:01)
[2024-05-23] MEDS: predniSONE 20 MG TABLET 40 MG PO (09:01)
[2024-05-23] MEDS: QUEtiapine Fumarate 50 MG TABLET PO (09:01)
--- NOTE | 2024-05-23 12:46 | PC.NURSE ---
Pt. resting comfortably at this time. HEBER Johnson remains as a 1:1 sitter at pt.'s bedside at this time.
[2024-05-23 14:21] VITALS: BP 122/63; PULSE 105; RESP 18; TEMP 36.3; O2SAT 94
--- NOTE | 2024-05-23 16:08 | PHA.MEDREC ---
Pharmacy Consult ? Medication Reconciliation Pharmacy has completed the medication reconciliation. Spoke with patient to confirm. He says he only takes pantoprazole once daily and gabapentin once daily (LF 02/24 x90 caps). He confirmed vraylar (LF 02/24 x30 DS). He reports hydroxyzine is prn.
[2024-05-23 16:21] VITALS: BP 122/63; PULSE 105; RESP 18; TEMP 36.3; O2SAT 94
--- NOTE | 2024-05-23 16:21 | PC.NURSE ---
Pt. belonging bags x2 returned to pt. from [facility]
== END 2024-05-23 16:21 | disposition home or self-care (01) ==
PROVIDERS: Physician Assistant; Emergency Provider Emergency Medicine; PCP Family Medicine
DX: F25.1 Schizoaffective disorder, depressive type (principal); F14.10 Cocaine abuse, uncomplicated; R45.851 Suicidal ideations; R45.850 Homicidal ideations; J40 Bronchitis, not specified as acute or chronic; R05.9 Cough, unspecified; R06.02 Shortness of breath; Z03.818 Encounter for observation for suspected exposure to other biological agents ruled out; F43.10 Post-traumatic stress disorder, unspecified; J44.9 Chronic obstructive pulmonary disease, unspecified; Z99.81 Dependence on supplemental oxygen; Z79.899 Other long term (current) drug therapy
CPT/HCPCS: 0241U; 36415; 70450; 71046; 80048; 80076; 80307; 81001; 83735; 84484; 85025; 85610; 87086; 93005; 94640; 99285; S9485

== ENCOUNTER → 2024-05-22 13:09 | Outpatient (BNV) | payer OTHER, SELFPAY | PROVIDERS: Emergency Provider Emergency Medicine; PCP Family Medicine; Visit Provider Internal Medicine Cardiovascular Disease | DX: R00.0 Tachycardia, unspecified (principal); R53.1 Weakness | CPT/HCPCS: 93010 ==

== ENCOUNTER → 2024-05-22 13:10 | Outpatient (BNV) | payer OTHER, SELFPAY | PROVIDERS: Visit Provider Radiology Vascular & Interventional Radiology | DX: I10 Essential (primary) hypertension (principal); J06.9 Acute upper respiratory infection, unspecified | CPT/HCPCS: 70450; 71046 ==